=== PATIENT | female | born 1980 | race Caucasian/White ===

== ENCOUNTER 2020-05-20 15:07 | Outpatient (REF) | payer OTHER, SELFPAY | END 2020-05-20 15:08 | disposition home or self-care (01) | LOC: HO.LAB 15:07 | PROVIDERS: Visit Provider Internal Medicine | DX: Z20.828 Contact with and (suspected) exposure to other viral communicable diseases (principal) | CPT/HCPCS: 87635 ==

== ENCOUNTER 2021-03-09 09:59 | Emergency (ER) | payer MEDICAID, SELFPAY ==
[2021-03-09 10:51] VITALS: BP 142/85; PULSE 70; RESP 18; TEMP 36.7; O2SAT 100; BMI 24.2
== END 2021-03-09 13:48 | disposition left against medical advice (07) ==
PROVIDERS: Emergency Provider Emergency Medicine
DX: M54.5 Low back pain (principal)
CPT/HCPCS: 99281; 99282

== ENCOUNTER 2021-03-10 11:10 | Outpatient (REF) | payer MEDICAID, SELFPAY ==
--- NOTE | ~2021-03-10 | XR_ITS ---
EXAMINATION: XR ANKLE, LEFT XR FOOT, LEFT XR LUMBAR SPINE XR THORACIC SPINE CLINICAL INFORMATION: Pain. COMPARISON: Left ankle and foot of 08/18/2019. TECHNIQUE: 5 views of the left foot and ankle. 5 views of the lumbar spine. 3 views of the thoracic spine. FINDINGS: THORACIC SPINE: There is minimal scoliosis convex right which may be positional in nature. Bony texture unremarkable. Pedicles intact. There is minimal spurring inferior thoracic spine. No acute fracture or paraspinal line bulge is identified. LUMBAR SPINE: There are 5 nonrib-bearing lumbar vertebra. No acute fracture, spondylolisthesis, or spondylolysis is identified. There is moderate narrowing of the L5-S1 disc space. No significant sacroiliac joint abnormality is seen. LEFT FOOT AND ANKLE: Views of the left ankle do not demonstrate any evidence of acute fracture or dislocation. Ankle mortise is intact. There is some soft tissue swelling seen about the lateral malleolus. Views of the left foot do not demonstrate any evidence of acute fracture or dislocation. There is degenerative change with sclerosis and spurring seen about the calcaneocuboid joint. There is increased sclerosis seen about sustentaculum roxana and question previous calcaneal injury/fracture with loss of Bohler's angle. Small plantar calcaneal spur is evident. Above findings were present previously. XR/XR foot LT min 3V IMPRESSION: No significant abnormality of the thoracic spine. L5-S1 degenerative disc disease. Soft tissue swelling about the lateral malleolus without significant ankle abnormality appreciated. Suspicion of previous calcaneal fracture with degenerative change about the calcaneocuboid joint and talar calcaneal joints.
--- NOTE | ~2021-03-10 | XR_ITS ---
EXAMINATION: XR ANKLE, LEFT XR FOOT, LEFT XR LUMBAR SPINE XR THORACIC SPINE CLINICAL INFORMATION: Pain. COMPARISON: Left ankle and foot of 08/18/2019. TECHNIQUE: 5 views of the left foot and ankle. 5 views of the lumbar spine. 3 views of the thoracic spine. FINDINGS: THORACIC SPINE: There is minimal scoliosis convex right which may be positional in nature. Bony texture unremarkable. Pedicles intact. There is minimal spurring inferior thoracic spine. No acute fracture or paraspinal line bulge is identified. LUMBAR SPINE: There are 5 nonrib-bearing lumbar vertebra. No acute fracture, spondylolisthesis, or spondylolysis is identified. There is moderate narrowing of the L5-S1 disc space. No significant sacroiliac joint abnormality is seen. LEFT FOOT AND ANKLE: Views of the left ankle do not demonstrate any evidence of acute fracture or dislocation. Ankle mortise is intact. There is some soft tissue swelling seen about the lateral malleolus. Views of the left foot do not demonstrate any evidence of acute fracture or dislocation. There is degenerative change with sclerosis and spurring seen about the calcaneocuboid joint. There is increased sclerosis seen about sustentaculum roxana and question previous calcaneal injury/fracture with loss of Bohler's angle. Small plantar calcaneal spur is evident. Above findings were present previously. XR/XR ankle LT 2V IMPRESSION: No significant abnormality of the thoracic spine. L5-S1 degenerative disc disease. Soft tissue swelling about the lateral malleolus without significant ankle abnormality appreciated. Suspicion of previous calcaneal fracture with degenerative change about the calcaneocuboid joint and talar calcaneal joints.
--- NOTE | ~2021-03-10 | XR_ITS ---
EXAMINATION: XR ANKLE, LEFT XR FOOT, LEFT XR LUMBAR SPINE XR THORACIC SPINE CLINICAL INFORMATION: Pain. COMPARISON: Left ankle and foot of 08/18/2019. TECHNIQUE: 5 views of the left foot and ankle. 5 views of the lumbar spine. 3 views of the thoracic spine. FINDINGS: THORACIC SPINE: There is minimal scoliosis convex right which may be positional in nature. Bony texture unremarkable. Pedicles intact. There is minimal spurring inferior thoracic spine. No acute fracture or paraspinal line bulge is identified. LUMBAR SPINE: There are 5 nonrib-bearing lumbar vertebra. No acute fracture, spondylolisthesis, or spondylolysis is identified. There is moderate narrowing of the L5-S1 disc space. No significant sacroiliac joint abnormality is seen. LEFT FOOT AND ANKLE: Views of the left ankle do not demonstrate any evidence of acute fracture or dislocation. Ankle mortise is intact. There is some soft tissue swelling seen about the lateral malleolus. Views of the left foot do not demonstrate any evidence of acute fracture or dislocation. There is degenerative change with sclerosis and spurring seen about the calcaneocuboid joint. There is increased sclerosis seen about sustentaculum roxana and question previous calcaneal injury/fracture with loss of Bohler's angle. Small plantar calcaneal spur is evident. Above findings were present previously. XR/XR thoracic spine 2V IMPRESSION: No significant abnormality of the thoracic spine. L5-S1 degenerative disc disease. Soft tissue swelling about the lateral malleolus without significant ankle abnormality appreciated. Suspicion of previous calcaneal fracture with degenerative change about the calcaneocuboid joint and talar calcaneal joints.
--- NOTE | ~2021-03-10 | XR_ITS ---
EXAMINATION: XR ANKLE, LEFT XR FOOT, LEFT XR LUMBAR SPINE XR THORACIC SPINE CLINICAL INFORMATION: Pain. COMPARISON: Left ankle and foot of 08/18/2019. TECHNIQUE: 5 views of the left foot and ankle. 5 views of the lumbar spine. 3 views of the thoracic spine. FINDINGS: THORACIC SPINE: There is minimal scoliosis convex right which may be positional in nature. Bony texture unremarkable. Pedicles intact. There is minimal spurring inferior thoracic spine. No acute fracture or paraspinal line bulge is identified. LUMBAR SPINE: There are 5 nonrib-bearing lumbar vertebra. No acute fracture, spondylolisthesis, or spondylolysis is identified. There is moderate narrowing of the L5-S1 disc space. No significant sacroiliac joint abnormality is seen. LEFT FOOT AND ANKLE: Views of the left ankle do not demonstrate any evidence of acute fracture or dislocation. Ankle mortise is intact. There is some soft tissue swelling seen about the lateral malleolus. Views of the left foot do not demonstrate any evidence of acute fracture or dislocation. There is degenerative change with sclerosis and spurring seen about the calcaneocuboid joint. There is increased sclerosis seen about sustentaculum roxana and question previous calcaneal injury/fracture with loss of Bohler's angle. Small plantar calcaneal spur is evident. Above findings were present previously. XR/XR lumbar spine 4V min IMPRESSION: No significant abnormality of the thoracic spine. L5-S1 degenerative disc disease. Soft tissue swelling about the lateral malleolus without significant ankle abnormality appreciated. Suspicion of previous calcaneal fracture with degenerative change about the calcaneocuboid joint and talar calcaneal joints.
== END 2021-03-10 11:11 | disposition home or self-care (01) ==
LOC: HO.XRAY 11:10
PROVIDERS: PCP Registered Nurse; Visit Provider Registered Nurse
DX: G89.29 Other chronic pain (principal); M25.572 Pain in left ankle and joints of left foot; M54.42 Lumbago with sciatica, left side; M54.6 Pain in thoracic spine; M79.672 Pain in left foot
CPT/HCPCS: 72070; 72110; 73600; 73630

== ENCOUNTER 2021-09-30 08:56 | Outpatient (REF) | payer MEDICAID, SELFPAY ==
--- NOTE | ~2021-09-30 | MM_ITS ---
EXAMINATION: MM DIAGNOSTIC DIGITAL BREAST TOMOSYNTHESIS, BILATERAL US DIAGNOSTIC ULTRASOUND BREAST, LEFT CLINICAL INFORMATION: Pain retroareolar left breast. Right sized nodule palpable by patient lower outer retroareolar left breast. Family history breast cancer, cousin. Prior outside mammography 4 years ago [id number], [place], unavailable. The lifetime risk of breast cancer based on the Tyrer-Cuzick Model is 11%. COMPARISON: None. TECHNIQUE: Digital breast tomosynthesis is performed in both the craniocaudal and mediolateral oblique views along with computer-aided detection (CAD). Synthesized 2D images are generated from the tomosynthesis. Ultrasound left breast is targeted to the areas of clinical concern as noted by patient. Patient is able to point areas of concern at time of imaging. In addition, additional ultrasound performed upper outer left breast. Grayscale imaging and color Doppler are performed without and with harmonics. FINDINGS: The breasts are heterogeneously dense, which may obscure small masses (ACR BI-RADS breast composition Category c). There are no significant masses, abnormal calcifications, or other abnormalities. No skin thickening or coarsening of the River's ligaments. The axilla are unremarkable. Ultrasound demonstrates a incidental simple cyst 3:00 position 7 cm from nipple measuring 0.8 x 0.5 cm, unrelated to patient's palpable concern and beyond the area of pain. There is no solid mass or architectural abnormality or focal duct ectasia. No skin thickening or edema tracking in soft tissue planes. Results are discussed with the patient at time of visit, using an coordinator hotels. MM/MM tomosynthesis diagnostic BI IMPRESSION: 1. No mammographic evidence of malignancy or inflammatory changes. 2. Incidental simple cyst 3:00 position mid depth 0.8 cm. ASSESSMENT: BI-RADS 2: Benign RECOMMENDATION: 1. Patient's breast pain should be managed based on the clinical impression. If there is clinically palpable concern, further evaluation may be considered with surgical consult. Decision to proceed with biopsy should be based on clinical grounds and degree of clinical concern. 2. Otherwise, routine annual screening mammography. This patient's information was entered into a reminder system with a target due date for their next mammogram.
== END 2021-09-30 08:57 | disposition home or self-care (01) ==
LOC: HO.MAMMO 08:56
PROVIDERS: PCP Nurse Practitioner Family; Visit Provider Nurse Practitioner Family
DX: N63.41 Unspecified lump in right breast, subareolar (principal); N64.4 Mastodynia
CPT/HCPCS: 76642; 77062; 77066

== ENCOUNTER 2022-12-03 11:00 | Emergency (ER) | payer MEDICAID, SELFPAY ==
--- NOTE | ~2022-12-03 | US_ITS ---
EXAMINATION: US SOFT TISSUE NECK CLINICAL INFORMATION: Mass versus lymph node left lateral neck COMPARISON: None available. TECHNIQUE: Ultrasound of the neck soft tissues is performed with high- frequency landa-scale imaging and color Doppler. FINDINGS: There is a 2.2 x 0.7 x 2.9 cm oval-shaped mass corresponding severe palpable abnormality. The mass has a slightly echogenic center. The appearance is characteristic for a benign lymph node. Multiple similar-appearing masses noted throughout the left neck also with appearance characteristic for lymph nodes. No additional masses.. US/US soft tiss head and/or neck IMPRESSION: Benign-appearing lymph nodes in the left neck one of which appears to be corresponding to the reported area of palpable abnormality
[2022-12-03 11:10] VITALS: BP 119/85; PULSE 81; RESP 18; TEMP 36.2; O2SAT 100; BMI 32.3
--- NOTE | 2022-12-03 11:14 | ED_ITS ---
HPI - General Adult General Chief complaint: General Medical <John Boyd - Last Filed: 12/03/22 11:15> Stated complaint: Lump behind L ear, painful <John Boyd - Last Filed: 12/03/22 11:15> Time Seen by Provider: 12/03/22 12:19 <John Boyd - Last Filed: 12/03/22 11:15> Source: patient <Erich Arroyo MD - Last Filed: 12/03/22 12:52> Mode of arrival: ambulatory <Erich Arroyo MD - Last Filed: 12/03/22 12:52> Limitations: language barrier <Erich Arroyo MD - Last Filed: 12/03/22 12:52> History of Present Illness HPI narrative: History obtained through an director medical writing. [place] with a few months of cervical lump, now feels that it is getting bigger. <Erich Arroyo MD - Last Filed: 12/03/22 12:52> Onset (ago): day(s) <Erich Arroyo MD - Last Filed: 12/03/22 12:52> Location: neck <Erich Arroyo MD - Last Filed: 12/03/22 12:52> Severity: mild <Erich Arroyo MD - Last Filed: 12/03/22 12:52> Pain Consistency: intermittent <Erich Arroyo MD - Last Filed: 12/03/22 12:52> Associated symptoms: denies other symptoms <Erich Arroyo MD - Last Filed: 12/03/22 12:52> Related Data Allergies/adverse reactions: Allergies Allergy/AdvReac Type Severity Reaction Status Date / Time No Known Allergies Allergy Verified 12/03/22 11:10 [No Known Allergies*] <John Boyd - Last Filed: 12/03/22 11:15> Review of Systems Review of Systems: Yes all other systems are reviewed and are negative <Erich Arroyo MD - Last Filed: 12/03/22 12:52> PMFSH Social History Social History: Social History Alcohol intake: never Smoked in Last 30 Days: Yes Use of substances other than those prescribed or required for medical reasons: No Advance Directives: No <John Boyd - Last Filed: 12/03/22 11:15> Physical Exam ED Vital Signs: Vital Signs - 24 hr 12/03/22 11:10 12/03/22 11:46 Temperature 97.2 F Pulse Rate 81 Respiratory Rate 18 16 Blood Pressure 119/85 Pulse Oximetry 100 Oxygen Delivery Method Room Air BMI result Body Mass Index 32.3 <John Boyd - Last Filed: 12/03/22 11:15> Vital Signs - 24 hr 12/03/22 11:10 12/03/22 11:46 Temperature 97.2 F Pulse Rate 81 Respiratory Rate 18 16 Blood Pressure 119/85 Pulse Oximetry 100 Oxygen Delivery Method Room Air BMI result Body Mass Index 32.3 <Erich Arroyo MD - Last Filed: 12/03/22 12:52> Const General: healthy appearing <Erich Arroyo MD - Last Filed: 12/03/22 12:52> Nutritional Appearance: average body habitus <Erich Arroyo MD - Last Filed: 12/03/22 12:52> Orientation/consciousness: oriented to person and patient oriented x3 <Erich Arroyo MD - Last Filed: 12/03/22 12:52> Limitations: no limitations <Erich Arroyo MD - Last Filed: 12/03/22 12:52> HENMT Head: Yes normal to inspection <Erich Arroyo MD - Last Filed: 12/03/22 12:52> Ears: external ears normal <Erich Arroyo MD - Last Filed: 12/03/22 12:52> General nose exam: Normal external nose present <Erich Arroyo MD - Last Filed: 12/03/22 12:52> Mouth: Normal oral and palatal mucosa present and oropharynx normal <Erihc Arroyo MD - Last Filed: 12/03/22 12:52> Throat: Yes posterior oropharynx normal <Erich Arroyo MD - Last Filed: 12/03/22 12:52> Eyes General: appearance normal, both eyes and all related structures <Erich Arroyo MD - Last Filed: 12/03/22 12:52> Neck Other: 3cm mobile left posterior chain lymph node, no other nodes in neck <Erich Arroyo MD - Last Filed: 12/03/22 12:52> Chest Chest palpation & inspection: normal inspection of the chest <Erich Arroyo MD - Last Filed: 12/03/22 12:52> Resp Auscultation: clear to auscultation bilaterally <Erich Arroyo MD - Last Filed: 12/03/22 12:52> Cardio Jugular venous distension: no JVD <Erich Arroyo MD - Last Filed: 12/03/22 12:52> Rate: regular rate <Erich Arroyo MD - Last Filed: 12/03/22 12:52> Rhythm: regular rhythm <Erich Arroyo MD - Last Filed: 12/03/22 12:52> Heart sounds: S1 normal heart sound present and S2 normal heart sound present <Erich Arroyo MD - Last Filed: 12/03/22 12:52> GI Inspection: Yes normal to inspection <Erich Arroyo MD - Last Filed: 12/03/22 12:52> Palpation (GI): Soft to palpation, nontender and No hepatosplenomegaly present <Erich Arroyo MD - Last Filed: 12/03/22 12:52> Auscultation: normal bowel sounds <Erich Arroyo MD - Last Filed: 12/03/22 12:52> General: Yes no CVA tenderness <Erich Arroyo MD - Last Filed: 12/03/22 12:52> Back/Spine/Pelvis Back: no CVA tenderness <Erich Arroyo MD - Last Filed: 12/03/22 12:52> Skin General skin exam: no rashes or lesions noted <Erich Arroyo MD - Last Filed: 12/03/22 12:52> Neuro General: oriented to person and patient oriented x3 <Erich Arroyo MD - Last Filed: 12/03/22 12:52> Cranial nerves: Yes CN's II-XII intact bilaterally <Erich Arroyo MD - Last Filed: 12/03/22 12:52> Motor exam (neuro): 5/5 motor strength present throughout <Erich Arroyo MD - Last Filed: 12/03/22 12:52> Extrem General: Yes normal to inspection <Erich Arroyo MD - Last Filed: 12/03/22 12:52> Psych Appearance: grossly normal <Erich Arroyo MD - Last Filed: 12/03/22 12:52> Course Course Course Narrative: 42-year-old female presents for evaluation of a growing lump to the left lateral neck. She states this started approximately 1 month ago has been getting much larger. Likely lymphadenopathy. Ultrasound ordered to rule out mass <John Boyd - Last Filed: 12/03/22 11:15> Reevaluation(s) Reevaluation #1: no other lymph nodes appreciated in neck or axilla, no hempatosplenomegaly, no concern for systemic disease <Erich Arroyo MD - Last Filed: 12/03/22 12:52> Time: 12:49 <Erich Arroyo MD - Last Filed: 12/03/22 12:52> Medical Decision Making Differential Diagnosis Differential Diagnoses: The differential diagnosis associated with the presentation includes (lymphadenopathy, pharyngitis, abscess, cyst, otitis media, mastoiditis) <Erich Arroyo MD - Last Filed: 12/03/22 12:52> Radiology Impression Discussion of test interpretation with radiology: I have reviewed the radiologist's reading. (of cervical ultrasound) <Erich Arroyo MD - Last Filed: 12/03/22 12:52> Tests considered The following testing was considered but not selected: I considered obtaining a CBC, however no physical presence of diffuse lymphadenopaty so did no do blood work <Erich Arroyo MD - Last Filed: 12/03/22 12:52> Discharge Plan Discharge Clinical Impression: Adenopathy, cervical <John Boyd - Last Filed: 12/03/22 11:15> Patient Disposition: Home, Self-Care <John Boyd - Last Filed: 12/03/22 11:15> Instructions: Lymphadenopathy (ED) <John Boyd - Last Filed: 12/03/22 11:15> Referrals: [facility] [Primary Care Provider] - 1 week <John Boyd - Last Filed: 12/03/22 11:15>
[2022-12-03 11:46] VITALS: RESP 16
--- NOTE | 2022-12-03 11:55 | PC.NURSE ---
Pt on stretcher, airway open and patent, no obvious signs of distress, no difficulty breathing. A&ox4, skin normal for ethnicity, warm, and dry. Lung sounds clr left. Slight rhonchi noted in lower right side, upper left clr. Heart sounds normal. Bowel sounds present all fletcher, abdomen soft, non-tender upon palpation. No edema noted. Pt has marble size lump in left side of neck, pt reports that she noticed it about a month ago and reports that it has gotten bigger since. Pt reports that she started to have pain in her neck since yesterday. Pt reports that she has not taken anything for the pain due to hx of hep C and avoiding tylenol/motrin. Pt rates pain in neck 02/20 and reports that the pain radiates up her neck to back. Pupils PERRLA.
== END 2022-12-03 13:10 | disposition home or self-care (01) ==
PROVIDERS: Emergency Provider Emergency Medicine
DX: R59.0 Localized enlarged lymph nodes (principal)
CPT/HCPCS: 76536; 99284

== ENCOUNTER 2023-08-17 17:44 | Outpatient (REF) | payer MEDICAID, SELFPAY | END 2023-08-17 17:45 | disposition home or self-care (01) | LOC: HO.HHCLNP 17:44 | PROVIDERS: Visit Provider Emergency Medicine | DX: R10.2 Pelvic and perineal pain (principal); R39.9 Unspecified symptoms and signs involving the genitourinary system | CPT/HCPCS: 87086 ==

== ENCOUNTER 2023-08-18 07:14 | Emergency (ER) | payer MEDICAID, SELFPAY ==
[2023-08-18 07:28] VITALS: BP 125/53; PULSE 92; RESP 16; TEMP 36.1; O2SAT 100; BMI 32.4
--- NOTE | 2023-08-18 10:07 | ED.FEMALEGU ---
HPI - Female Genitourinary General Chief complaint: Urogenital-Female Stated complaint: has abd pain, blood in urine ? Time Seen by Provider: 08/18/23 08:38 Source: patient and medical device Mode of arrival: ambulatory History of Present Illness [facility] Narrative: 43-year-old who presents for complaints of over 1 week of lower abdominal/pelvic cramping and reports that she got her period twice within 1 week while she was in [place]. She denies any vaginal discharge, fevers, chills, nausea, vomiting, dysuria. Related Data Allergies Allergy/AdvReac Type Severity Reaction Status Date / Time No Known Allergies Allergy Verified 12/03/22 11:10 [No Known Allergies*] Review of Systems Review of Systems: Pertinent positives and negatives as stated in [facility] Past Medical History Source: nursing notes reviewed Onset Date is defined in the Problem List Problems that require an onset date and time if occurred within 24 hrs of arrival to the ED Aortic Dissection and Rupture; Neurologic impairment; Cardiopulmonary Arrest; Endotracheal Intubation; Insertion or Replacement of Mechanical Circulatory Assist Device Social History Social History Alcohol intake: never Advance Directives: No Advance Directives Information Provided: Yes Physical Exam Vital Signs: Vital Signs: Last Vital Signs Temp 97 F 08/18/23 07:28 Pulse 92 08/18/23 07:28 Resp 16 08/18/23 07:28 BP 125/53 L 08/18/23 07:28 Pulse Ox 100 08/18/23 07:28 O2 Del Method Room Air 08/18/23 07:28 BMI result Body Mass Index 32.4 VITAL SIGNS: Reviewed. GENERAL: Well developed, well nourished, in no acute distress. HEAD: Normocephalic/atraumatic EYES: PERRLA, EOMI EARS: Ext canals without abnormality NOSE: Nares patent bilateral OROPHARYNX: no oral lesions noted, posterior pharynx clear NECK: Supple, no adenopathy LUNGS: Normal breath sounds. No adventitious sounds or accessory muscle use. SpO2<100> CARDIOVASCULAR: Regular rate and rhythm without noted murmurs ABDOMEN: Soft, non-tender, non-distended with bowel sounds. MUSCULOSKELETAL: No tenderness, deformities, or effusions noted on gross inspection. EXTREMITIES: No cyanosis, clubbing or edema. SKIN: Inspection of the skin reveals no rashes NEUROLOGIC: Alert and oriented x 4. Strength and sensation to light touch were grossly intact x 4. Medications Administered Discontinued Medications Generic Name Dose Route Start Last Admin Trade Name Cathy PRN Reason Stop Dose Admin Acetaminophen 975 mg 08/18/23 09:26 08/18/23 10:02 Acetaminophen 325 Mg Tablet PO 08/18/23 09:27 975 mg ONCE ONE Administration Ibuprofen 800 mg 08/18/23 09:26 08/18/23 10:02 Ibuprofen 800 Mg Tablet PO 08/18/23 09:27 800 mg ONCE ONE Administration Medical Decision Making Medical Decision Making [facility] Narrative: 43-year-old female with history and clinical presentation, DDX: UTI, ectopic, I have no clinical suspicion for torsion or appendicitis. No history or concerns by the patient for sexually transmitted infection. Patient is primarily concerned about why she had her period twice. I reviewed all over investigations and she has no hematuria or urinary tract infection, urine test is negative. I did discuss with the patient that she may be experiencing changes in her menstruation if her body is entering into perimenopausal process. She was encouraged to follow-up with your primary care doctor and provided with a referral to follow-up with [facility] gynecology. She received combination analgesics and on re-evaluation reports improvement of her symptoms. Differential Diagnosis Differential Diagnoses: The differential diagnosis associated with the presentation includes Please see the discussion above Admission/Observation Consideration of admission/observation: Escalation of care including admission/observation considered Please see the discussion above Lab Data [facility] Lab Attestation statement: I reviewed the patient's lab results. Please see the discussion above Labs: Lab Results 08/18/23 Range/Units 07:36 Urine Color Dark Yellow Urine Appearance Cloudy Urine pH 5.5 (5.0-9.0) Ur Specific [place] 1.025 (1.005-1.025) Urine Protein Trace (Neg-Trace) mg/dL Urine Glucose (UA) Negative (Negative) mg/dL Urine Ketones Trace (Negative) mg/dL Urine Blood Negative (Negative) Urine Nitrite Negative (Negative) Ur Leukocyte Esterase Negative (Negative) Urine Test NEGATIVE (NEGATIVE) Discharge Plan Discharge Clinical Impression: Pelvic pain Patient Disposition: Home, Self-Care Instructions: Pelvic Pain in Women (ED) Additional Instructions: 1. Tylenol 1000 mg, por v?a oral, cada 6 horas seg?n sea necesario para controlar el dolor. No exceda los 4000 mg en 24 horas. 2. Ibuprofeno 400 mg, por v?a oral con leche o comida, cada 6 horas seg?n sea necesario para controlar el dolor. 3. Las referencias que se le proporcionan a continuaci?n y le recomiendo que realice un seguimiento con [facility]?dico de atenci?n primaria para analizar jennyfer referencia adicional para serena a ginec?logo. Regrese a la vinny de emergencias si los s?ntomas empeoran. 1. Tylenol 1000 mg, orally, every 6 hours as needed for pain control. Do not exceed 4000 mg within 24 hours. 2. Ibuprofen 400 mg, orally with milk or food, every 6 hours as needed for pain control. 3. The referrals provided to you below and I encourage follow-up with both your primary care doctor to discuss a further referral to see gynecology. Return to the ER for any worsening symptoms. Referrals: Tommy Dugan MD [Physician] - Interventions: ED Discharge Assessment Last Done: 08/18/23 10:46 Discharge Date/Time: 08/18/23 10:46 Print Language: Yakut
== END 2023-08-18 10:46 | disposition home or self-care (01) ==
PROVIDERS: Emergency Provider Student in an Organized Health Care Education/Training Program
DX: R10.9 Unspecified abdominal pain (principal); R10.2 Pelvic and perineal pain; Z79.899 Other long term (current) drug therapy
CPT/HCPCS: 81003; 81025; 99283

== ENCOUNTER 2023-08-29 04:11 | Emergency (ER) | payer MEDICAID, SELFPAY ==
--- NOTE | ~2023-08-29 | CT_ITS ---
EXAMINATION: CT ABDOMEN AND PELVIS WITHOUT CONTRAST CLINICAL INFORMATION: Left flank pain. COMPARISON: None available. TECHNIQUE: Multidetector volumetric imaging was performed from the superior aspect of the liver through the pubic symphysis. Sagittal and coronal reformatted images were obtained on the technologist's workstation. This CT examination was performed using dose optimization techniques as appropriate, variously including the following: *Automated exposure control *Adjustment of mA and/or kV according to patient size (this includes techniques or standardized protocols for targeted exams where dose is matched to indication/reason for exam; i.e. extremities or head) *Use of iterative reconstruction technique DLP: 665 mGy-cm FINDINGS: LUNG BASES: The visualized lung bases are unremarkable. LIVER, GALLBLADDER, AND BILIARY TREE: The liver is normal in size, shape, and attenuation. No focal hepatic lesion or biliary ductal dilatation is present. The gallbladder is unremarkable with no evidence of radiopaque gallstones, gallbladder wall thickening, or obvious pericholecystic inflammatory changes. PANCREAS: Unremarkable. SPLEEN: Unremarkable. ADRENAL GLANDS: Unremarkable. KIDNEYS AND URETERS: The kidneys are normal in size, shape, and attenuation. There is mild left hydronephrosis and hydroureter extending into the pelvis to the level of a 3.5 mm distal left ureteric calculus. BLADDER: Unremarkable. GASTROINTESTINAL TRACT: The small and large bowel are unremarkable. The appendix is unremarkable. ABDOMINAL WALL: There is a small umbilical hernia containing fat. LYMPH NODES: Normal. VASCULAR: Unremarkable. PELVIC VISCERA: Unremarkable. OSSEOUS STRUCTURES: There is moderate to severe L5-S1 disc degenerative change CT/CT abdomen pelvis wo IV con IMPRESSION: Mild left hydronephrosis and hydroureter extending into the pelvis to the level of a 3.5 mm distal left ureteric calculus. Fleischner guidelines were followed.
[2023-08-29 04:18] VITALS: BP 124/80; BP 132/56; PULSE 61; PULSE 72; RESP 22; TEMP 36.4; O2SAT 100; O2SAT 98; BMI 27.5
--- NOTE | 2023-08-29 04:43 | ED_ITS ---
HPI - Abdominal Pain General Chief Complaint: Abdominal Pain Stated Complaint: L LOW BACK PAIN,SOB PER EMS Time Seen by Provider: 08/29/23 04:38 Source: patient Mode of arrival: ambulatory Limitations: no limitations History of Present Illness HPI narrative: Patient comes to the emergency room complaining of left-sided flank pain that started suddenly about 3.5 hours ago. Patient states that she returned to work, ate pancakes, then suddenly had a sharp sensation in the left flank radiating towards the suprapubic area and left groin. Patient states the pain is intermittent. Patient has never passed kidney stones. Patient complaining of nausea, no vomiting or diarrhea. Chest pain or abdominal pain other than the suprapubic discomfort. Patient states that she has been seen at [facility] before, she has been told that she has blood in the urine but a recent has not been found. Patient complaining of intermittent dysuria. No fever or chills. Related Data Previous Rx's Medication Instructions Recorded ketorolac 10 mg tablet 10 mg PO TID PRN pain #14 tabs 08/29/23 ondansetron HCl 4 mg tablet 4 mg PO Q6H PRN nausea and 08/29/23 vomiting #14 tabs tamsulosin 0.4 mg capsule 0.4 mg PO DAILY #20 caps 08/29/23 Allergies Allergy/AdvReac Type Severity Reaction Status Date / Time No Known Allergies Allergy Verified 12/03/22 11:10 [No Known Allergies*] Review of Systems Review of Systems Constitutional : No Weight loss, No Fever, No Chills, No Night Sweats, No Fatigue, No Malaise ENT/Mouth : No Hearing loss, No Ear Pain, No Nasal Congestion, No Sinus Pain, No Hoarseness, No sore throat, No Rhinorrhea, No Swallowing Difficulty Eyes: No Eye Pain, No Swelling, No Redness, No Foreign Body, No Discharge, No Vision Changes Cardiovascular : No Chest Pain, No SOB, No Dyspnea on Exertion, No Orthopnea, No Edema, No Palpitations Respiratory : No Cough, No Sputum, No Wheezing, No Smoke Exposure, No Dyspnea Gastrointestinal : No Nausea, No Vomiting, No Diarrhea, No Constipation, No abdominal Pain, No Hematochezia, No Melena Genitourinary : Complaining of intermittent Dysuria, No Urinary Frequency, complaining of intermittent Hematuria, No Urinary Incontinence, No Urgency, complaining of constant left-sided Flank Pain, No Urinary Flow Changes, No Hesitancy Musculoskeletal : No joint pain, No Myalgias, No Joint Swelling Skin : No Skin Lesions, No rash Neuro : No Weakness, No Numbness, No Paresthesias, No Loss of Consciousness, No Dizziness, No Headache Psych : No Anxiety/Panic, No Depression, No SI/HI/AH/VH, No Social Issues, Heme/Lymph: No Bruising, No Bleeding,No Lymphadenopathy Endocrine : No Polyuria, No Polydipsia, No Temperature Intolerance [facility] Social History Social History Alcohol intake: never Smoked in Last 30 Days: Yes Use of substances other than those prescribed or required for medical reasons: No Advance Directives: No Advance Directives Information Provided: No Patient : No Physical Exam ED Vital Signs: Vital Signs - 24 hr 08/29/23 04:18 08/29/23 06:18 Temperature 97.5 F Pulse Rate 61 54 Respiratory Rate 22 H 16 Blood Pressure 132/56 L 106/63 Pulse Oximetry 100 97 Oxygen Delivery Method Room Air Room Air BMI result Body Mass Index 27.5 Const Other: Appearance: Alert. Oriented X3. Seems uncomfortable Eyes: Pupils equal, round and reactive to light. ENT: Pharynx normal. Neck: Normal inspection. Neck supple. No lymph nodes noted. No crepitus CVS: Normal heart rate and rhythm. Pulses normal. Normal S1 and S2 Respiratory: No respiratory distress. Breath sounds normal. No Wheezing. No rales Abdomen: Soft and nontender. No rigidity. No distention. Positive CVA tenderness on the left Skin: Skin warm and dry. Normal skin color. Normal skin turgor. Extremities: No lower extremity edema. No Lacerations. No Rash Neuro: Oriented X 3. No motor deficit. No sensory deficit. Moving all extremities. No slurred speech. CN 2 through 12 grossly intact Psych: calm, cooperative, normal affect Course Course Course Narrative: -labs and imaging pending -CT scan pending -patient receiving IV fluids, Zofran and ketorolac IV Medical Decision Making Medical Decision Making MDM Narrative: -my interpretation of labs: Hematology: White blood cell count normal, hemoglobin 11.7, chemistry unremarkable, urine negative for UTI or blood -my interpretation of CT scan: Small stone in the left ureter -I discussed the CT findings, radiology report with the patient, patient is passing a kidney stone. Patient feels comfortable at this time, no significant pain, patient will be discharged home Differential Diagnosis Differential Diagnoses: The differential diagnosis associated with the presentation includes (Ureterolithiasis, renal colic, UTI, pyelonephritis) Admission/Observation Consideration of admission/observation: Escalation of care including admission/observation considered (Given patient's initial presentation, patient was considered) Lab Data MDM Lab Attestation statement: I reviewed the patient's lab results. 08/29/23 04:49 08/29/23 04:49 Labs: Lab Results 08/29/23 08/29/23 Range/Units 04:49 05:00 WBC 8.7 (4.8-10.8) X10*3/uL RBC 4.38 (4.20-5.50) X10*6/uL Hgb 11.7 L (12.0-16.0) g/dl Hct 36.2 L (37.0-47.0) % MCV 82.6 (80.0-98.0) fL MCH 26.7 L (27.0-33.0) pg MCHC 32.3 (31.0-35.0) g/dl RDW 15.2 (11.0-16.0) % Plt Count 265 (160-400) X10*3/uL MPV 9.8 (9.4-12.3) fL Immature Gran % (Auto) 0.2 (0.0-0.4) % Neut % (Auto) 69.0 (45-73) % Lymph % (Auto) 21.5 (20-40) % [place] % (Auto) 7.7 (2-11) % Eos % (Auto) 1.3 (0-4) % Baso % (Auto) 0.3 (0-2) % Lymph # (Auto) 1.9 (1.2-4.9) X10*3/uL [place] # (Auto) 0.7 (0.1-1.2) X10*3/uL Eos # (Auto) 0.1 (0.0-0.4) X10*3/uL Baso # (Auto) 0.0 (0.0-0.2) X10*3/uL Abs Immat Gran (auto) 0.02 (0.00-0.03) X10*3/uL Absolute Neuts (auto) 6.0 (2.0-8.3) x10*3/uL Absolute Nucleated RBC 0.000 (0.0-0.012) X10*3/uL Nucleated RBC % (auto) 0.0 (0.0-0.2) /100WBC Sodium 139 (135-145) mmol/L Potassium 4.0 (3.3-5.1) mmol/L Chloride 103 (96-108) mmol/L Carbon Dioxide 25 (22-29) mmol/L Anion Gap 15 (12-20) BUN 15 (9-16) mg/dL Creatinine 0.89 (0.5-1.4) mg/dL Estim Creat Clear Calc 77.9 Estimated GFR > 60 Random Glucose 122 H (60-115) mg/dL Calcium 9.5 (8.4-10.2) mg/dL Total Bilirubin 0.2 (0.0-1.0) mg/dL AST 25 (5-31) U/L ALT 17 (0-31) U/L Alkaline Phosphatase 100 (39-117) U/L Total Protein 8.2 H (6.5-8.0) g/dL Albumin 4.3 (3.5-5.0) g/dL Lipase 27 (8-78) U/L Beta HCG, Quant < 2 mIU/mL Urine Color Dark Yellow Urine Appearance Clear Urine pH 5.5 (5.0-9.0) Ur Specific [place] >= 1.030 H (1.005-1.025) Urine Protein Trace (Neg-Trace) mg/dL Urine Glucose (UA) Negative (Negative) mg/dL Urine Ketones Trace (Negative) mg/dL Urine Blood Negative (Negative) Urine Nitrite Negative (Negative) Ur Leukocyte Esterase Negative (Negative) Independent Interpretation I performed an independent interpretation of an: CT Scan Radiology Impression Discussion of test interpretation with radiology: I have reviewed the radiologist's reading. Radiologist Impression: FINDINGS: LUNG BASES: The visualized lung bases are unremarkable. LIVER, GALLBLADDER, AND BILIARY TREE: The liver is normal in size, shape, and attenuation. No focal hepatic lesion or biliary ductal dilatation is present. The gallbladder is unremarkable with no evidence of radiopaque gallstones, gallbladder wall thickening, or obvious pericholecystic inflammatory changes. PANCREAS: Unremarkable. SPLEEN: Unremarkable. ADRENAL GLANDS: Unremarkable. KIDNEYS AND URETERS: The kidneys are normal in size, shape, and attenuation. There is mild left hydronephrosis and hydroureter extending into the pelvis to the level of a 3.5 mm distal left ureteric calculus. BLADDER: Unremarkable. GASTROINTESTINAL TRACT: The small and large bowel are unremarkable. The appendix is unremarkable. ABDOMINAL WALL: There is a small umbilical hernia containing fat. LYMPH NODES: Normal. VASCULAR: Unremarkable. PELVIC VISCERA: Unremarkable. OSSEOUS STRUCTURES: There is moderate to severe L5-S1 disc degenerative change CT/CT abdomen pelvis wo IV con IMPRESSION: Mild left hydronephrosis and hydroureter extending into the pelvis to the level of a 3.5 mm distal left ureteric calculus. Fleischner guidelines were followed. Medications Administered Discontinued Medications Generic Name Dose Route Start Last Admin Trade Name Freq PRN Reason Stop Dose Admin Ketorolac Tromethamine 30 mg 08/29/23 04:42 08/29/23 04:56 Ketorolac Tromethamine 30 Mg/Ml Vial IVPUSH 08/29/23 04:43 30 mg ONCE ONE Administration Ondansetron HCl 4 mg 08/29/23 04:42 08/29/23 04:56 Ondansetron Hcl 4 Mg/2 Ml Vial IVPUSH 08/29/23 04:43 4 mg ONCE ONE Administration Discharge Plan Discharge Clinical Impression: Ureterolithiasis Patient Disposition: Home, Self-Care Instructions: Kidney Stones (ED) Additional Instructions: Please follow-up with your primary care physician tomorrow. If you have any worsening or new symptoms, please return to the emergency room or call 911 Prescriptions: New tamsulosin 0.4 mg capsule 0.4 mg PO DAILY Qty: 20 0RF ketorolac 10 mg tablet 10 mg PO TID PRN (Reason: pain) Qty: 14 0RF ondansetron HCl 4 mg tablet 4 mg PO Q6H PRN (Reason: nausea and vomiting) Qty: 14 0RF Referrals: Ag Ang MD [Physician] - 09/05/23 Stand Alone Forms: Work/School Release
[2023-08-29 04:53] LABS: MANUAL DIFF FLAG NO
[2023-08-29 04:54] LABS: Basophils Percent Auto 0.3 % (0-2); Eosinophils Absolute Auto 0.1 X10*3/uL (0.0-0.4); Eosinophils Percent Auto 1.3 % (0-4); Hematocrit 36.2 % (37.0-47.0); Hemoglobin 11.7 g/dl (12.0-16.0); Imm Gran Abs Auto 0.02 X10*3/uL (0.00-0.03); Imm Gran Pct Auto 0.2 % (0.0-0.4); Lymphocytes Absolute Auto 1.9 X10*3/uL (1.2-4.9); Lymphocytes Percent Auto 21.5 % (20-40); Mean Corpuscular HGB Conc 32.3 g/dl (31.0-35.0); Mean Corpuscular Hemoglobin 26.7 pg (27.0-33.0); Mean Corpuscular Volume 82.6 fL (80.0-98.0); Mean Platelet Volume 9.8 fL (9.4-12.3); Monocytes Absolute Auto 0.7 X10*3/uL (0.1-1.2); Monocytes Percent Auto 7.7 % (2-11); Platelet Count 265 X10*3/uL (160-400); Red Blood Count 4.38 X10*6/uL (4.20-5.50); Red Cell Distribution Width 15.2 % (11.0-16.0); White Blood Count 8.7 X10*3/uL (4.8-10.8)
[2023-08-29] MEDS: Ketorolac Tromethamine 30 MG/ML VIAL IVPUSH (04:56)
[2023-08-29] MEDS: ondansetron HCL 4 MG/2 ML VIAL IVPUSH (04:56)
[2023-08-29 05:07] LABS: Appearance Urine Clear; Color Urine Dark Yellow; Glucose Urine UA Negative (Negative); Leukocyte Esterase Urine Negative (Negative); Nitrite Urine Negative (Negative); PH 5.5 (5.0-9.0); Specific Gravity - Urine >= 1.030 (1.005-1.025); Urine Blood Negative (Negative); Urine Ketones Trace mg/dL (Negative); Urine Protein Trace mg/dL (Neg-Trace)
[2023-08-29 05:15] LABS: Alanine Aminotransferase 17 U/L (0-31); Albumin Level 4.3 g/dL (3.5-5.0); Alkaline Phosphatase 100 U/L (39-117); Anion Gap 15 (12-20); Aspartate Amino Transferase 25 U/L (5-31); Bilirubin Total 0.2 mg/dL (0.0-1.0); Blood Urea Nitrogen 15 mg/dL (9-16); Calcium 9.5 mg/dL (8.4-10.2); Carbon Dioxide 25 mmol/L (22-29); Chloride 103 mmol/L (96-108); Creatinine Clr Calc Pharmacy 77.9; Estimated Glomerular Filt Rate > 60; Glucose Random 122 mg/dL (60-115); HCG Quantitative < 2 mIU/mL; Lipase 27 U/L (8-78); Sodium 139 mmol/L (135-145); Total Protein 8.2 g/dL (6.5-8.0)
[2023-08-29 06:18] VITALS: BP 106/63; PULSE 54; RESP 16; O2SAT 97
== END 2023-08-29 06:46 | disposition home or self-care (01) ==
PROVIDERS: Emergency Provider Emergency Medicine
DX: N13.2 Hydronephrosis with renal and ureteral calculous obstruction (principal)
CPT/HCPCS: 36415; 74176; 80053; 81003; 83690; 84702; 85025; 96374; 96375; 99284; 99285; J1885; J2405

== ENCOUNTER 2023-09-20 12:43 | Outpatient (REF) | payer MEDICAID, SELFPAY ==
--- NOTE | ~2023-09-20 | MM_ITS ---
EXAMINATION: MM SCREENING DIGITAL BREAST TOMOSYNTHESIS, BILATERAL CLINICAL INFORMATION: Screening. Asymptomatic. COMPARISON: Mammography: This study is compared with prior exams dating back to 2021. TECHNIQUE: Digital breast tomosynthesis is performed in both the craniocaudal and mediolateral oblique views along with computer-aided detection (CAD). Synthesized 2D images are generated from the tomosynthesis. FINDINGS: The breasts are heterogeneously dense, which may obscure small masses (ACR BI-RADS breast composition Category c). There are no significant masses, abnormal calcifications, or other abnormalities. MM/MM tomosynthesis screening BI IMPRESSION: No mammographic evidence of malignancy. ASSESSMENT: BI-RADS BI-RADS 1 - Negative RECOMMENDATION: Routine annual mammography screening. 1 year F/U This examination should not preclude the clinical evaluation of a suspicious palpable abnormality. This patient's information was entered into a reminder system with a target due date for their next mammogram.
== END 2023-09-20 12:44 | disposition home or self-care (01) ==
LOC: HO.MAMMO 12:43
DX: Z12.31 Encounter for screening mammogram for malignant neoplasm of breast (principal)
CPT/HCPCS: 77063; 77067

== ENCOUNTER → 2023-09-20 13:00 | Outpatient (BNV) | payer MEDICAID, SELFPAY | PROVIDERS: Visit Provider Radiology Diagnostic Radiology | DX: Z12.31 Encounter for screening mammogram for malignant neoplasm of breast (principal) | CPT/HCPCS: 77063; 77067 ==

== ENCOUNTER 2023-10-31 15:39 | Outpatient (REF) | payer MEDICAID, SELFPAY ==
[2023-11-01 07:45] LABS: HBc Num1 0.09 S/CO (0.00-0.79); HIV AB/AG Nonreactive (Nonreactive); HIV Num 1 0.05 S/CO (0.00-0.99); Hepatitis B Core Antibody Nonreactive (Nonreactive); ~Hepatitis C Antibody Reactive (Nonreactive)
[2023-11-04 07:28] LABS: HCV Log PCR <1.18 NOT DETECTED Log IU/mL (NOT DETECTED); HepC Viral Load <15 NOT DETECTED IU/mL (NOT DETECTED)
[2023-11-08 01:03] LABS: HPV mRNA E6/E7 rflx Not Detected (Not Detected)
[2023-11-08 13:53] LABS: C. trachomatis RNA TMA NOT DETECTED (NOT DETECTED); N. gonorrhoeae RNA TMA NOT DETECTED (NOT DETECTED); Trichomonas (NAAT) NOT DETECTED (NOT DETECTED)
== END 2023-10-31 15:40 | disposition home or self-care (01) ==
LOC: HO.HHCL 15:39
PROVIDERS: Visit Provider Nurse Practitioner Family
DX: Z00.00 Encounter for general adult medical examination without abnormal findings (principal); Z12.4 Encounter for screening for malignant neoplasm of cervix; Z11.51 Encounter for screening for human papillomavirus (HPV); Z11.4 Encounter for screening for human immunodeficiency virus [HIV]; Z86.19 Personal history of other infectious and parasitic diseases
CPT/HCPCS: 36415; 86704; 86803; 87389; 87491; 87522; 87591; 87624; 87661; 88142

== ENCOUNTER 2024-02-23 08:56 | Outpatient (REF) | payer MEDICAID, SELFPAY ==
[2024-02-23 11:15] LABS: MANUAL DIFF FLAG NO
[2024-02-23 11:22] LABS: Basophils Percent Auto 0.4 % (0-2); Eosinophils Absolute Auto 0.2 X10*3/uL (0.0-0.4); Eosinophils Percent Auto 2.1 % (0-4); Hematocrit 34.2 % (37.0-47.0); Hemoglobin 10.9 g/dl (12.0-16.0); Imm Gran Abs Auto 0.03 X10*3/uL (0.00-0.03); Imm Gran Pct Auto 0.4 % (0.0-0.4); Lymphocytes Absolute Auto 1.9 X10*3/uL (1.2-4.9); Lymphocytes Percent Auto 27.2 % (20-40); Mean Corpuscular HGB Conc 31.9 g/dl (31.0-35.0); Mean Corpuscular Hemoglobin 26.1 pg (27.0-33.0); Mean Corpuscular Volume 81.8 fL (80.0-98.0); Mean Platelet Volume 10.3 fL (9.4-12.3); Monocytes Absolute Auto 0.7 X10*3/uL (0.1-1.2); Monocytes Percent Auto 9.3 % (2-11); Neutrophils Absolute Auto 4.3 x10*3/uL (2.0-8.3); Neutrophils Percent Auto 60.6 % (45-73); Platelet Count 275 X10*3/uL (160-400); Red Blood Count 4.18 X10*6/uL (4.20-5.50); Red Cell Distribution Width 16.6 % (11.0-16.0); White Blood Count 7.1 X10*3/uL (4.8-10.8)
[2024-02-23 11:51] LABS: Alanine Aminotransferase 17 U/L (0-31); Albumin Level 3.8 g/dL (3.5-5.0); Alkaline Phosphatase 99 U/L (39-117); Anion Gap 10 (12-20); Aspartate Amino Transferase 16 U/L (5-31); Bilirubin Direct < 0.2 mg/dL (0.0-0.5); Bilirubin Total 0.2 mg/dL (0.0-1.0); Blood Urea Nitrogen 9 mg/dL (9-16); Calcium 9.1 mg/dL (8.4-10.2); Carbon Dioxide 25 mmol/L (22-29); Chloride 108 mmol/L (96-108); Cholesterol 142 mg/dL (<200); Estimated Glomerular Filt Rate > 60; Glucose Random 104 mg/dL (60-115); HDL Cholesterol 36 mg/dL (>40); LDL Cholesterol Calculated 92 mg/dL (<100); Sodium 139 mmol/L (135-145); Triglycerides 74 mg/dL (<150)
[2024-02-23 11:59] LABS: TSH reflex Free T4 1.42 uIU/mL (0.32-4.0)
[2024-02-23 12:06] LABS: Estimated Average Glucose 111 mg/dL; Hemoglobin A1c % 5.5 % (<6.0)
== END 2024-02-23 08:57 | disposition home or self-care (01) ==
LOC: HO.HHCL 08:56
PROVIDERS: Visit Provider Nurse Practitioner Family
DX: Z00.00 Encounter for general adult medical examination without abnormal findings (principal); D64.9 Anemia, unspecified; R53.83 Other fatigue; Z86.19 Personal history of other infectious and parasitic diseases
CPT/HCPCS: 36415; 80053; 80061; 82248; 83036; 84443; 85025

== ENCOUNTER 2024-11-29 15:16 | Outpatient (REF) | payer MEDICAID, SELFPAY ==
--- NOTE | ~2024-11-29 | XR_ITS ---
EXAMINATION: XR CERVICAL SPINE CLINICAL INFORMATION: PAIN COMPARISON: None available. TECHNIQUE: 6 views of the cervical spine, inclusive of flexion and extension views, were obtained. FINDINGS: There is reversal of cervical lordosis. Loss of C5-C6, C6/7 and C7-T1 disc heights with mild ventral spondylosis noted. Oblique views there is mild narrowing of C5-6, C6-C7 neural foramina worse on the left at the C6/7 disc level from uncovertebral hypertrophic spurring. No acute fracture or dislocation seen. No lytic process. The prevertebral soft tissues are normal. XR/XR cervical spine 5V IMPRESSION: Degenerative disc changes C5-6, C6-7 and C7-T1 disc levels. Moderate bilateral narrowing of neural foramina at C5-6 and C6-C7 disc levels worse on the left at C6- C7 disc level. Recommend outpatient MRI correlation. Electronically signed by: Peña Eubanks MD 11/29/2024 04:11 PM EDT
== END 2024-11-29 15:17 | disposition home or self-care (01) ==
LOC: HO.HHCX 15:16
PROVIDERS: Visit Provider Nurse Practitioner Family
DX: M54.2 Cervicalgia (principal)
CPT/HCPCS: 72050

== ENCOUNTER → 2024-11-29 15:21 | Outpatient (BNV) | payer MEDICAID, SELFPAY | PROVIDERS: Visit Provider Radiology Diagnostic Radiology | DX: M50.30 Other cervical disc degeneration, unspecified cervical region (principal) | CPT/HCPCS: 72050 ==

== ENCOUNTER 2024-12-01 13:30 | Emergency (ER) | payer OTHER, SELFPAY ==
--- NOTE | ~2024-12-01 | XR_ITS ---
CLINICAL HISTORY: pain 3 view left shoulder Comparison: None Findings: Bones intact. No dislocations. No significant arthritic change. No erosions. No radiopaque foreign body. IMPRESSION: 1. No acute findings This document has been electronically signed by: Daksha Sargent MD on 12/01/2024 15:27:20
--- NOTE | ~2024-12-01 | XR_ITS ---
CLINICAL HISTORY: CP 2 view chest x-ray Comparison: None Findings: No consolidation or effusion. Normal size heart. No acute fracture. IMPRESSION: 1. No acute findings. This document has been electronically signed by: Daksha Sargent MD on 12/01/2024 15:26:47
--- NOTE | 2024-12-01 13:32 | ED.CHESTPAIN ---
HPI - Chest Pain General Chief Complaint: Extremity Injury, Upper Stated Complaint: pain in shoulder into chest Time Seen by Provider: 12/01/24 14:00 Source: patient, RN notes reviewed and motor vehicle parts interpreter Mode of arrival: ambulatory Limitations: language barrier History of Present Illness ED Provider: Anupama Fry PA-C HPI narrative: This is a 11-qysv-laj-occitan speaking female, with no known medical problems, who presents to the ER with concerns for left shoulder pain for the last 3 weeks. 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 Pt reports that she previously did not do this and was switched to this other job within her work 3 weeks ago. She states that since then, she has had pain in her neck, radiating into her left shoulder down into her left hand. She reports that two days ago she had an episode of chest pain that lasted only several seconds. She reports that her PCP had ordered a c spine xray, which she had performed on 11/29, which she is still waiting for the results. She reports that her symptoms resolve while she is moving, but states that when she returns home from work her symptoms worsen and last through the night into the morning. She denies any fevers, chills, shortness of breath, current chest pain, nausea, vomiting or diarrhea. Denies hx of similar symptoms in the past. No other complaints or concerns at this time. Timing of current episode: episodic Prior episodes: No Risk Factors Coronary artery disease risk factors: none Thoracic aortic dissection risk factors: none Related Data Previous Rx's ?Medication ?Instructions ?Recorded ketorolac 10 mg tablet 10 mg PO TID PRN pain #14 tabs 08/29/23 ondansetron HCl 4 mg tablet 4 mg PO Q6H PRN nausea and 08/29/23 vomiting #14 tabs tamsulosin 0.4 mg capsule 0.4 mg PO DAILY #20 caps 08/29/23 acetaminophen 500 mg tablet 1,000 mg (2 x 500 mg) PO Q8H PRN 12/01/24 (Tylenol Extra Strength) pain #30 tabs cyclobenzaprine 10 mg tablet 10 mg PO TID #14 tabs 12/01/24 lidocaine 5 % topical patch 1 patch topical DAILY #30 ea 12/01/24 prednisone 20 mg tablet 20 mg PO DAILY 5 days #5 tabs 04/20/25 Allergies Allergy/AdvReac Type Severity Reaction Status Date / Time No Known Allergies Allergy Verified 12/01/24 13:39 [No Known Allergies*] Review of Systems Review of Systems: Yes all other systems are reviewed and are negative Constitutional: Constitutional: Reports as per HPI, Denies body ache(s), Denies chills and Denies fever(s) Eyes: Eyes: Reports as per HPI, Denies change in vision and Denies eye discharge ENT: Reports system reviewed and no additional complaints, except as documented, Reports as per HPI, Reports Normal hearing present and Denies facial pain Cardiovascular: Cardiovascular: Reports as per HPI and Denies chest pain Respiratory: Respiratory: Reports as per HPI and Denies cough Gastrointestinal: Gastrointestinal: Reports as per HPI, Reports no additional gastrointestinal complaints, Denies abdominal pain, Denies diarrhea, Denies nausea and Denies vomiting Genitourinary: Genitourinary: Reports no additional female genitourinary complaints and Reports as per HPI Musculoskeletal: Musculoskeletal: Reports no additional musculoskeletal complaints, Reports as per HPI, Reports numbness and Reports tingling Integumentary/Breasts: Skin/Breast: Reports system reviewed and no additional complaints, except as docu, Reports as per HPI, Reports erythema, Denies rash and Denies wounds Neurologic: Reports Normal hearing present, Reports numbness and Reports tingling Psychiatric: Psychiatric: Reports no additional psychiatric complaints and Reports as per HPI Endocrine: Endocrine: Reports no additional endocrine complaints and Reports as per HPI Hematologic/Lymphatic: Hematologic/Lymphatic: Reports no additional hematologic/lymphatic complaints and Reports as per HPI Allergic/Immunologic: Allergic/Immunologic: Reports no additional allergic/immunologic complaints and Reports as per HPI [facility] Social History Social History Alcohol intake: never Smoked in Last 30 Days: No Use of substances other than those prescribed or required for medical reasons: No Advance Directives: No Advance Directives Information Provided: Yes Patient : No Physical Exam Vital Signs: Vital Signs: Last Vital Signs Temp 97.5 F 12/01/24 13:38 Pulse 75 12/01/24 15:25 Resp 18 12/01/24 15:25 BP 126/79 12/01/24 15:25 Pulse Ox 99 12/01/24 15:25 O2 Del Method Room Air 12/01/24 15:25 BMI result Body Mass Index 25.8 Const: General: cooperative, comfortable and no acute distress Orientation/consciousness: patient oriented x3 Limitations: no limitations HEENT: Head: Yes normal to inspection, Yes normocephalic and Yes atraumatic Ears: hearing grossly normal bilaterally General nose exam: Normal external nose present Face and sinus: Yes normal facial exam Mouth: Normal oral and palatal mucosa present, oropharynx normal and moist mucous membranes Throat: Yes posterior oropharynx normal Eyes: General: appearance normal, both eyes and all related structures Eyelids: Yes eyelids normal Conjunctivae: conjunctivae normal Sclerae: sclerae normal Pupils: Equal, round and reactive pupils present EOM: EOMs intact bilaterally Neck: Other: TTP overlying the cervical paraspinous muscles, no midline spine tenderness. No nuchal ridigity. Neck: Yes normal visual inspection, Yes full ROM and Yes no lymphadenopathy Lymphatic: no lymphadenopathy noted Chest: Chest palpation & inspection: normal inspection of the chest Resp: Effort & Inspection: normal respiratory effort and able to speak in complete sentences Auscultation: clear to auscultation bilaterally Cardio: Rate: regular rate Rhythm: regular rhythm Heart sounds: S1 normal heart sound present and S2 normal heart sound present GI: Inspection: Yes normal to inspection Skin: General skin exam: no rashes or lesions noted Trauma: no lacerations or abrasions Wounds: no wounds Neuro: General: patient oriented x3 and moves all extremities Cranial nerves: Yes Equal, round and reactive pupils present and Yes Normal hearing present Extrem: Other: Left shoulder with no obvious bony deformity or swelling. No overlying erythema or wamrth. Pt with ttp throughout the entire shoulder joint without any specific point tenderness. Sensation in tact. She has ttp into the left trapezius muscle with spasm. Full ROM of the left shoulder. Neg lift off test General: Yes normal to inspection Right upper extremity: normal to inspection Left upper extremity: normal to inspection Left lower extremity: normal to inspection Course Course Course Narrative: This is an RME performed by Norberto Saravia CNP: Additional HPI, ROS, PE not included below will be deferred to primary provider. Patient is a 44-year-old female who presents emergency department for evaluation of left upper extremity pain started from the shoulder radiating all the way down the arm, has associated numbness and tingling. Onset was 3 weeks ago progressively worsening. 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 Tried Tylenol twice without improvement no additional medications or conservative treatment. Spoke with your primary care doctor in regards to this, had a cervical spine x-ray outpatient 2 days ago no does not know the results yet of this; impression reveals degenerative disc disease, moderate neuroforaminal narrowing with radiologist recommendation for outpatient MRI. Reevaluation(s) Reevaluation #1: Shoulder x-ray and chest x-ray unremarkable. Awaiting labs. EKG normal sinus rhythm with no ST elevation or depression. Awaiting blood work. Time: 15:33 Reevaluation #2: Blood work returns, no acute findings. Discussed overall workup with patient and motor vehicle parts interpreter at bedside. Symptoms likely attributed to cervical radiculopathy. Advised patient to follow-up with her PCP. D/C with prednisone, flexeril, tylenol. Given return precautions. Pt stable for d/c. Time: 16:27 Medications Administered Discontinued Medications Generic Name Dose Route Start Last Admin Trade Name Freq PRN Reason Stop Dose Admin Acetaminophen 975 mg 12/01/24 14:41 12/01/24 15:22 Acetaminophen 325 Mg Tablet PO 12/01/24 14:42 975 mg ONCE ONE Administration Medical Decision Making Medical Decision Making [facility] Narrative: This is a 44-egmv-xrl-female who presents to the ER with complaints of neck pain and shoulder pain x 3 weeks. On arrival, patient is well appearing, under no acute distress. Vital signs WNL. Pt reports 2 days ago she had an episode of CP, no active CP now. Unlikely ACS in nature, but will obtain labs, ekg, cxr and xr left shoulder. Pt had an outpatient c spine xray which revealed DDD C5-C6, C6-7 and C7-T1 disc levels. Moderate bilateral narrowing of neural foramina at C5-6 and C6-C7 disc levels worse on the left at C6- C7 disc level. This is likely the source of her symptoms. DDX including cervical radiculopathy, ACS, muscle spasm, strain. Differential Diagnosis Differential Diagnoses: The differential diagnosis associated with the presentation includes See above Lab Data [facility] Lab Attestation statement: I reviewed the patient's lab results. No leukocytosis, H&H revealing a normocytic anemia - similar to previous. Chem with no acute electrolyte derangements. 12/01/24 15:14 12/01/24 15:14 Labs: Lab Results 12/01/24 Range/Units 15:14 WBC 7.0 (4.8-10.8) X10*3/uL RBC 4.40 (4.20-5.50) X10*6/uL Hgb 11.9 L (12.0-16.0) g/dl Hct 36.5 L (37.0-47.0) % MCV 83.0 (80.0-98.0) fL MCH 27.0 (27.0-33.0) pg MCHC 32.6 (31.0-35.0) g/dl RDW 16.3 H (11.0-16.0) % Plt Count 274 (160-400) X10*3/uL MPV 10.1 (9.4-12.3) fL Immature Gran % (Auto) 0.3 (0.0-0.4) % Neut % (Auto) 56.1 (45-73) % Lymph % (Auto) 31.2 (20-40) % [place] % (Auto) 8.6 (2-11) % Eos % (Auto) 3.2 (0-4) % Baso % (Auto) 0.6 (0-2) % Lymph # (Auto) 2.2 (1.2-4.9) X10*3/uL [place] # (Auto) 0.6 (0.1-1.2) X10*3/uL Eos # (Auto) 0.2 (0.0-0.4) X10*3/uL Baso # (Auto) 0.0 (0.0-0.2) X10*3/uL Abs Immat Gran (auto) 0.02 (0.00-0.03) X10*3/uL Absolute Neuts (auto) 3.9 (2.0-8.3) x10*3/uL Absolute Nucleated RBC 0.000 (0.0-0.012) X10*3/uL Nucleated RBC % (auto) 0.0 (0.0-0.2) /100WBC Sodium 142 (135-145) mmol/L Potassium 4.5 (3.3-5.1) mmol/L Chloride 106 (96-108) mmol/L Carbon Dioxide 27 (22-29) mmol/L Anion Gap 14 (12-20) BUN 13 (9-16) mg/dL Creatinine 0.79 (0.5-1.4) mg/dL Estim Creat Clear Calc 90.7 Estimated GFR > 60 Random Glucose 89 (60-115) mg/dL Calcium 8.9 (8.4-10.2) mg/dL Magnesium 1.8 (1.6-2.6) mg/dL Total Bilirubin 0.2 (0.0-1.0) mg/dL Direct Bilirubin < 0.2 (0.0-0.5) mg/dL AST 23 (5-31) U/L ALT 20 (0-31) U/L Troponin I High Sens < 2.7 (<3.5-17.0) ng/L Total Protein 7.4 (6.5-8.0) g/dL Albumin 4.0 (3.5-5.0) g/dL Independent Interpretation I performed an independent interpretation of an: EKG Interpretation: EKG normal sinus rhythm at a ventricular rate of 65 beats per minute, no ST elevation or depression. OR interval 134, QT QTC 386/401 Radiology Impression Discussion of test interpretation with radiology: I have reviewed the radiologist's reading. Radiologist Impression: Findings: Bones intact. No dislocations. No significant arthritic change. No erosions. No radiopaque foreign body. IMPRESSION: 1. No acute findings This document has been electronically signed by: Daksha Sargent MD on 12/01/2024 15:27:20 Dictated By: Daksha Sargent MD Comparison: None Findings: No consolidation or effusion. Normal size heart. No acute fracture. IMPRESSION: 1. No acute findings. This document has been electronically signed by: Daksha Sargent MD on 12/01/2024 15:26:47 Dictated By: Daksha Sargent MD Discharge Plan Discharge Clinical Impression: Cervical radiculopathy Patient Disposition: Home, Self-Care Instructions: Cervical Radiculopathy (ED) Additional Instructions: You were seen in the emergency department today. Your symptoms are likely to degenerative changes seen in your neck. This is found on your x-rays that were performed 2 days ago. Your symptoms are attributed to something called cervical radiculopathy which is where nerve in the neck is irritated or compressed leading to pain, numbness into your left arm. Your blood work was reassuring. Your EKG was normal. Your chest x-ray and shoulder x-ray do not show any abnormalities. Please take prescribed prednisone as directed, this will help decrease inflammation. Take Tylenol as needed for pain. Flexeril as a muscle relaxants, please be advised that this can cause drowsiness, do not drink alcohol or drive while taking this medication. Lidoderm patches can also help for your pain. Please call your primary care physician as you likely needing MRI of your neck. If any new or worsening symptoms occur including but not limited to severe chest pain or shortness for breath, please seek emergent care. Prescriptions: New prednisone 20 mg tablet 20 mg PO DAILY 5 Days Qty: 5 0RF cyclobenzaprine 10 mg tablet 10 mg PO TID Qty: 14 0RF lidocaine 5 % adhesive patch,medicated 1 patch topical DAILY Qty: 30 0RF Rx Instructions: leave on most painful area for up to 12 hrs acetaminophen [Tylenol Extra Strength] 500 mg tablet 1,000 mg PO Q8H PRN (Reason: pain) Qty: 30 0RF No Action tamsulosin 0.4 mg capsule 0.4 mg PO DAILY Qty: 20 0RF ketorolac 10 mg tablet 10 mg PO TID PRN (Reason: pain) Qty: 14 0RF ondansetron HCl 4 mg tablet 4 mg PO Q6H PRN (Reason: nausea and vomiting) Qty: 14 0RF Stand Alone Forms: Work/School Release Print Language: Trinidadian
[2024-12-01 13:38] VITALS: BP 144/68; PULSE 90; RESP 18; TEMP 36.4; O2SAT 100; BMI 25.8
--- OUTSIDE RECORDS SUMMARY | 2024-12-01 14:16 | XMS_ITS | Clinical Summary ---
Author Organization [employer] Address [address] [facility] [address] [place] [address] Care Team Providers Care Watch Inspector Name Role Phone Jadyn Davison ROGER Primary Care Provider [phone] Allergies No known active allergies Medications varenicline (Chantix) 0.5 MG tablet Take one tablet once daily for three days, then one tablet twice daily for three days, then continue maintenance dose. 11 tablet 3 Active Additional Information Patient not taking.Reported on 11/19/2024 nicotine (Nicoderm CQ) 14 MG/24HR patch Place 1 patch on the skin 1 (one) time each day at the same time. 42 patch 4 Active nicotine (Nicoderm CQ) 7 MG/24HR patch Place 1 patch on the skin 1 (one) time each day at the same time. 14 patch 4 Active nicotine polacrilex (Commit) 4 MG lozenge Dissolve 1 lozenge (4 mg) in the mouth every 2 (two) hours if needed for smoking cessation. 100 lozenge 4 Active ferrous gluconate (Fergon) 324 (38 Fe) MG tabletIndication s:Anemia, unspecified type Take 1 tablet (324 mg) by mouth with breakfast. 30 tablet 2 4 03/26/20 25 Active Additional Information Patient not taking.Reported on 11/19/2024 Omeprazole 20 MG tablet delayed-releaseI ndications:Gastr oesophageal reflux disease, unspecified whether esophagitis present Take 20 mg by mouth Once per day. 30 tablet 1 4 Active triamcinolone (Kenalog) 0.1 % cream Apply topically if needed in the morning and at bedtime (pain and swelling). 30 g 2 4 Active Additional Information Patient not taking.Reported on 11/19/2024 nicotine polacrilex (Nicorette) 4 MG gumIndications:T obacco use disorder Chew 1 each (4 mg) if needed in the morning, at noon, in the evening, and at bedtime for smoking cessation. 120 each 4 Active ketorolac (Toradol) 10 MG tablet TAKE 1 TABLET ORALLY 3 TIMES A DAY NEEDED FOR PAIN 4 Active ondansetron (Zofran) 4 MG tablet TAKE 1 TABLET ORALLY EVERY 6 HOURS NEEDED FOR NAUSEA AND VOMITING 4 Active tamsulosin (Flomax) 0.4 MG 24 hr capsule Take 0.4 mg by mouth Once per day. 4 Active Active Problems Problem Noted Date Diagnosed Date Complaint of paresthesia 07/07/2024 Chronic pain of left ankle 02/23/2024 Assessment & Plan (03/04/2024 6:21 PM EDT): Nursing into apply brace Otalgia 02/23/2024 Assessment & Plan (03/04/2024 6:22 PM EDT): Associated cellulitis, apply warm compresses, if no improvement, add keflex Cellulitis of antihelix of both ears 02/23/2024 Assessment & Plan (03/04/2024 6:23 PM EDT): See above [place] of foot 02/23/2024 Assessment & Plan (03/04/2024 6:23 PM EDT): Referral to podiatry Gastroesophageal reflux disease 02/19/2024 Assessment & Plan (03/28/2024 5:24 PM EDT): Stable, symptoms are completely controlled with ppi Assessment & Plan (03/04/2024 6:23 PM EDT): Trial protonix, close follow up Left ankle injury, subsequent encounter 02/19/20 24 Foot lesion 02/19/2024 Assessment & Plan (02/24/2024 3:34 PM EDT): [place] vs wart, referral to podiatry Anemia 02/19/2024 Assessment & Plan (03/28/2024 5:25 PM EDT): Likely secondary to menorraghia, pt was offered methods to control menses and oral iron, pt opts for oral iron therapy, repeat cbc ordered - cologuard Assessment & Plan (02/24/2024 3:35 PM EDT): Trend labs Left foot pain 02/19/2024 Atopic dermatitis 02/19/2024 Assessment & Plan (02/24/2024 3:34 PM EDT): No exudate will trial triamcinolone, rtc in 2-4 weeks Other fatigue 02/19/2024 Assessment & Plan (02/24/2024 3:34 PM EDT): Will check cbc and tsh Cervical cancer screening 11/08/2023 Assessment & Plan (11/08/2023 7:48 PM EDT): Pap completed today Vision changes 11/08/2023 Health care maintenance 11/08/2023 Assessment & Plan (11/08/2023 7:50 PM EDT): Moderate cad risk due to smoking, labs as ordered below, Mammogram ordered Pap completed Cologuard ordered Colon cancer screening 10/31/2023 Chronic hepatitis C without hepatic coma 023 Hepatitis C virus infection cured after antiviral drug therapy 11/21/2022 Assessment & Plan (11/08/2023 7:47 PM EDT): Labs ordered, asymptomatic Tobacco dependence 11/21/2022 Assessment & Plan (03/28/2024 5:27 PM EDT): Extensive discussion around nicotine replacement therapy pt opts for gum Assessment & Plan (02/24/2024 3:34 PM EDT): Declines assistance today Assessment & Plan (11/08/2023 7:47 PM EDT): Motivated to quit, has chantix at home, will start Anxiety 07/13/2021 Smoker 07/13/2021 Viral hepatitis C 07/13/2021 Encounters Date Type Department Care Team Description 11/29/2024 Orders Only [facility] [address] [place] [address] Jadyn Davison NP Left arm numbness (Primary Dx); Cervical radiculopathy 11/27/2024 Telephone [facility] [address] [place] [address] Ehsan Vo DDS 11/19/2024 10:00 AM EDT Office Visit [facility] [address] [place] [address] Jw Briana Dental calculus (Primary Dx); Dental plaque; Periodontal disease 11/04/2024 Telephone [facility] [address] [place] [address] Jw Briana change insurance/approval under 10/25/2024 Population Health Risk Score Community [facility] ([facility] Department [address] [place] [address] [phone] Provider, Population Health Generic 10/10/2024 Telephone [facility] [address] [place] [address] Kritsy Pulido MA Chart Prep 09/17/2024 10:00 AM EST Office Visit [facility] [address] [place] [address] Jw, Briana Dental plaque (Primary Dx); Dental calculus 09/10/2024 Telephone [facility] [address] [place] [address] Krsity Pulido MA Chart Prep from Last 3 Months Immunizations Name Administration Dates Next Due Influenza injectable quadrivalent preservative f ree 06/06/2022,07/13/2021 Influenza, Injectable, MDCK, preservative free 0 05/01/2024 Tdap 07/13/2021 Social History Tobacco Use Types Packs/Day Years Used Date Smoking Tobacco: Every Day Cigarettes Tobacco Cessation:Ready to Q uit: Not Asked; Counseling Given: Not Answered Alcohol Use Standard Drinks/Week Comments Never 0 (1 standard drink = 0.6 oz pur e alcohol) Depression Answer Date Recorded Patient Health Questionnaire-9 Score 0 10/31/2023 Patient Health Questionnaire-9 Score 0 10/31/2023 Last PHQ-9: Questionnaire Data Not on file 0 10/31/2023 Housing Stability Answer Date Recorded What is your housing situation today? I have isacc erendira 10/31/[address] you li ve. Do you have problems with any of the following? None of the above 10/31/2023 Food Insecurity Answer Date Recorded Within the past 12 months, y ou worried that your food would run out before you got money to buy more: Never True 10/31/2023 Within the past 12 months,th e food you bought just didn't last and you didn't have enough money to get more: Never True Transportation Answer Date Recorded In the past 12 months, has l ack of transportation kept you from medical appts, meetings, work or from getting things needed for daily living? No 10/31/2023 Utilities Answer Date Recorded In the past 12 months, has t he electric, gas, oil or water company threatened to shut off services in your home? No 10/31/2023 Depression Answer Date Recorded Patient Health Questionnaire-2 Score 0 10/31/2023 Comments Unknown Sex and Gender Information Value Date Recorded Sex Assigned at Female 06/13/2022 10:37 AM EDT Legal Sex Female 10:37 AM EDT Gender Identity Female 06/13/2022 10:37 AM EDT Sexual Orientation Choose not to disclose 2021 10:37 AM EDT Last Filed Vital Signs Vital Sign Reading Time Taken Comments Blood Pressure 134/76 11/19/2024 10:08 AM EDT Pulse 82 03/26/2024 11:38 AM EDT Temperature 36.6 ??C (97.9 ??F) 03/26/2024 11:38 AM E DT Respiratory Rate 25 03/26/2024 11:38 AM EDT Oxygen Saturation 98% 02/23/2024 10:01 AM EDT Inhaled Oxygen Concentration - - Weight 88.1 kg (194 lb 3.2 oz) 03/26/2024 11:38 AM EDT Height 167.6 cm (5' 6 ) 03/26/2024 11:38 AM EDT Body Mass Index 31.34 03/26/2024 11:38 AM EDT Plan of Treatment Upcoming Encounters Date Type Department Care Team (Late st Contact Info) Description 01/03/2025 9:30 AM EDT Office Visit [facility] [address] [place] [address] Ehsan Vo DDS [address] [place] [address] 02/03/2025 9:00 AM EDT Office Visit [facility] [address] [place] [address] Jadyn Davison NP [address] [place] [address] Health Maintenance Due Date Last Done Comments CT Colonography 1978 Colonoscopy 1978 FIT 1978 FOBT 1978 Sigmoidoscopy 1978 Alcohol/Substance Use Screening 1990 Family Planning (PISQ) 1993 Hepatitis A Vaccines (1 of 2 - Risk 2-dose series) 1997 Hepatitis B Vaccines (1 of 3 - 19+ 3-dose series) 1997 Pneumococcal Vaccine: Pediatrics (0 to 5 Years) and At-Risk Patients (6 to 49) Years) (1 of 2 - PCV) 1997 Mammogram 09/30/2023 09/30/2021 COVID-19 Vaccine ( season) 2024 06/06/2022, 09/16/2021, 02/20/2021, Additional history exists Dental Oral Exam 10/04/2024 04/02/2024 Dental Prophylaxis 10/04/2024 04/02/2024 Depression Screening 10/30/2024 10/31/2023, 10/31/19 SDOH Screening 10/30/2024 10/31/2023 Dental X-Ray: Bitewings 09/18/2025 09/17/2024, 04/02 Tobacco Screening 11/19/2025 11/19/2024 Pap Smear 10/30/2026 10/31/2023, 10/31/2023 Colorectal Cancer Screening 12/31/2026 FIT DNA/Cologuard 12/31/2026 01/01/2024 Dental X-Ray: Full Mouth 04/03/2027 04/02/2024, 02/09/2020 Zoster Vaccines (1 of 2) 2028 Cervical Cancer Screening 10/30/2028 HPV/Cotest 10/30/2028 10/31/2023 Lipid Panel 02/22/2029 02/23/2024, 07/27/2021 DTaP/Tdap/Td Vaccines (2 - Td or Tdap) 07/13/2031 07/13/2021 RSV Patients and Patients Aged 60 years or older (1 - 1-dose 75+ series) 2053 HIV Screening Completed 10/31/2023, 07/14, 02/05/2021 Influenza Vaccine Completed 05/01/2024, , 07/13/2021 HIB Vaccines Aged Out No longer eligi ble based on patient's age to complete this topic HPV Vaccines Aged Out No longer eligi ble based on patient's age to complete this topic IPV Vaccines Aged Out No longer eligi ble based on patient's age to complete this topic Meningococcal Vaccine Aged Out No timo jatin eligible based on patient's age to complete this topic RSV under 20 months Aged Out No longe r eligible based on patient's age to complete this topic Rotavirus Vaccines Aged Out No longer eligible based on patient's age to complete this topic Procedures Procedure Name Priority Date/Time Associated Diagnosis Comments XR CERVICAL SPINE 5V Routine 11/29/2024 3:21 PM EDT ORAL HYGIENE INSTRUCTIONS Routine 11/19/2024 10:00 AM EDT Dental calculus Dental plaque Periodontal disease CASE PRESENTATION, DETAILED AND EXTENSIVE TREATMENT PLANNING Routine 11/19/2024 10:00 AM EDT LR PERIODONTAL SCALING AND ROOT PLANING - 1 TO 3 TEETH PER QUADRANT Routine 11/19/2024 10:00 AM EDT Dental calculus Dental plaque Periodontal disease UR PERIODONTAL SCALING AND ROOT PLANING - 1 TO 3 TEETH PER QUADRANT Routine 11/19/2024 10:00 AM EDT Dental calculus Dental plaque Periodontal disease BITEWING - SINGLE RADIOGRAPHIC IMAGE Routine 09/17/2024 10:00 AM EST LL PERIODONTAL SCALING AND ROOT PLANING - 1 TO 3 TEETH PER QUADRANT Routine 09/17/2024 10:00 AM EST Dental plaque Dental calculus CASE PRESENTATION, DETAILED AND EXTENSIVE TREATMENT PLANNING Routine 09/17/2024 10:00 AM EST ORAL HYGIENE INSTRUCTIONS Routine 09/17/2024 10:00 AM EST Dental plaque Dental calculus UL PERIODONTAL SCALING AND ROOT PLANING - 1 TO 3 TEETH PER QUADRANT Routine 09/17/2024 10:00 AM EST Dental plaque Dental calculus PROPHYLAXIS - ADULT Routine 04/02/2024 1 :00 PM EDT Dental calculus Periodontal disease Dental plaque INTRAORAL - COMPLETE SERIES OF RADIOGRAPHIC IMAGES Routine 04/02/2024 1:00 PM EDT PERIODIC ORAL EVALUATION - ESTABLISHED PATIENT Routine 04/02/2024 1:00 PM EDT Dental calculus Periodontal disease Dental plaque Encounter for dental examination Dental caries LIPID PANEL, STANDARD Routine 02/23/2024 8:57 AM EDT Health care maintenance LAB COLOGUARD?? COLON CANCER SCREEN Routine 01/01/2024 9:00 AM EDT Colon cancer screening HPV MRNA E6/E7 REFLEX TO HPV 16, 18/45 Routine 10/31/2023 4:07 PM EDT Cervical cancer screening IMAGE-GUIDED PAP W/AGE BASED SCR,W/CT/NG/TRICH Routine 10/31/2023 4:07 PM EDT Cervical cancer screening HIV 1/2 ANTIGEN/ANTIBODY, FOURTH GENERATION W/RFL Routine 10/31/2023 2:53 PM EDT Health care maintenance MAMMOGRAM GENERIC Routine 09/30/2021 9:2 5 AM EST from Last 3 Months or Most Recently Relevant to Health Maintenance Results * XR CERVICAL SPINE 5V (11/29/2024 3:21 PM EDT) Anatomical Region Laterality Modality Abdomen Radiographic Sun ging 11/29/2024 3:21 PM EDT Narrative 11/29/2024 4:14 PM EDT ?[facility] ?[address] ?[place] [address] ?XRay Report ? Signed ? Patient: Dallin,Jodi ?MR#: [id number] ?? 04 ? : 1980 ?Acct:[id number] ? Age/Sex: 44 / F ?ADM Date: 11/29/24 ? Loc: HO.HHCX ? Attending Dr: Jadyn Davison WINDOW REPAIRER ? Ordering Physician: Jadyn Davison WINDOW REPAIRER ?? Date of Service: 11/29/24 ?? Procedure(s): XR cervical spine 5V ?? Accession Number(s): [id number] ? cc: Jadyn Davison WINDOW REPAIRER ? EXAMINATION: ?? XR CERVICAL SPINE ? CLINICAL INFORMATION: ?? PAIN ? COMPARISON: ?? None available. ? TECHNIQUE: ?? 6 views of the cervical spine, inclusive of flexion and extension ?? views, were obtained. ? FINDINGS: ?? There is reversal of cervical lordosis. Loss of C5-C6, C6/7 and C7-T1 ?? disc heights with mild ventral spondylosis noted. Oblique views there ?? is mild narrowing of C5-6, C6-C7 neural foramina worse on the left at ?? the C6/7 disc level from uncovertebral hypertrophic spurring. No acute ?? fracture or dislocation seen. No lytic process. The prevertebral soft ?? tissues are normal. ? XR/XR cervical spine 5V ?? IMPRESSION: ?? Degenerative disc changes C5-6, C6-7 and C7-T1 disc levels. Moderate ?? bilateral narrowing of neural foramina at C5-6 and C6-C7 disc levels ?? worse on the left at C6- C7 disc level. Recommend outpatient MRI ?? correlation. ? Electronically signed by: ??Peña Cha MD ??11/29/2024 04:11 PM EDT RP ? Dictated By: ?Cha,Peña S MD ? Signed By: ?<Electronically signed by Peña S Cha, MD in OV> ?11/29/24 1611 ? DD/ 1521 ? TD/TT: 11/29/24 1550 ? Shoer: MSM ? Procedure Note Cullen, Image - 11/29/2024 [facility] [address] [place] [address] XRay Report Signed Patient: Tc Zamarripa#: [id number] 04 : 1980Acct:[id number] Age/Sex: 44 / FADM Date: 11/29/24 Loc: HO.HHCX Attending Dr: Jadyn Davison WINDOW REPAIRER Ordering Physician: Jadyn Davison NP Date of Service: 11/29/24 Procedure(s): XR cervical spine 5V Accession Number(s): [id number] cc: Jadyn Davison WINDOW REPAIRER EXAMINATION: XR CERVICAL SPINE CLINICAL INFORMATION: PAIN COMPARISON: None available. TECHNIQUE: 6 views of the cervical spine, inclusive of flexion and extension views, were obtained. FINDINGS: There is reversal of cervical lordosis. Loss of C5-C6, C6/7 and C7-T1 disc heights with mild ventral spondylosis noted. Oblique views there is mild narrowing of C5-6, C6-C7 neural foramina worse on the left at the C6/7 disc level from uncovertebral hypertrophic spurring. No acute fracture or dislocation seen. No lytic process. The prevertebral soft tissues are normal. XR/XR cervical spine 5V IMPRESSION: Degenerative disc changes C5-6, C6-7 and C7-T1 disc levels. Moderate bilateral narrowing of neural foramina at C5-6 and C6-C7 disc levels worse on the left at C6- C7 disc level. Recommend outpatient MRI correlation. Electronically signed by: Peña Eubanks MD 11/29/2024 04:11 PM EDT Dictated By: Peña Eubanks MD Signed By: <Electronically signed by Peña Eubanks MD in OV> 11/29/24 1611 DD/ 1521 TD/TT: 11/29/24 1550 Shoer: MICHAEL Jadyn Davison WINDOW REPAIRER IMG XR PROCEDURES Edited Result - Final * (ABNORMAL) Lipid Panel, Standard (02/23/2024 8:57 AM EDT) Triglycerides 74 <150 mg/dL [facility] Comment:Desirable Triglyceri de: less than 150 mg/dLBorderline High Triglyceride 150-199 mg/dLHigh Triglyceride: 200-499 mg/dLVery High Triglyceride: greater than or equal to 5OO mg/dL Cholesterol 142 <200 mg/dL [facility] Comment:Desirable Cholestero l: less than 200 mg/dLBorderline High Cholesterol: 200-239 mg/dLHigh Cholesterol: greater than 239 mg/dL LDL Cholesterol Calculated 92 <100 mg/dL [facility] Comment:Desirable LDL: less than 100 mg/dLNear Optimal/Above Optimal LDL: 110- 129 mg/dLBorderline High LDL: 130-159 mg/dLHigh LDL: 160-189 mg/dLVery High LDL: greater than or equal to 190 mg/dL HDL Cholesterol 36(L) >40 mg/dL [facility] Comment:Desirable HDL: great er than 40 mg/dL Note: This HDL assay may give artificially low results in patients with liver disease. Blood Venous blood specimen / Unknown 02/23/2024 8:57 AM EDT 02/23/2024 11:06 AM EDT us Jadyn Davison NP LAB BLOOD ORDERABLES Final Resul t [facility] [address] [place] [phone] * Cologuard?? colon cancer screening (01/01/2024 9:00 AM EDT) Cologuard Result Negative Negative 01/18/20 24 11:47 AM EDT [facility] (CLIA #:[id number]) Comment: NEGATIVE TEST RESULT. A negative Cologuard result indicates a low likelihood that a colorectal cancer (CRC) or advanced adenoma (adenomatous polyps with more advanced pre-malignant features) ??is present. The chance that a person with a negative Cologuard test has a colorectal cancer is less than 1 in 1500 (negative predictive value >99.9%) or has an ??advanced adenoma is less than ??5.3% (negative predictive value 94.7%). These data are based on a prospective cross-sectional study of 10,000 individuals at average risk for colorectal cancer who were screened with both Cologuard and colonoscopy. (Rayray Duque. hodan al, N Engl J Med 2014;370(14):1286- 1297) The normal value (reference range) for this assay is negative. COLOGUARD RE-SCREENING RECOMMENDATION: Periodic colorectal cancer screening is an important part of preventive healthcare for asymptomatic individuals at average risk for colorectal cancer. ??Following a negative Cologuard result, the [place] [employer] and U.S. Multi-Society Task Force screening guidelines recommend a Cologuard re-screening interval of 3 years. References: [place] [employer] Guideline for Colorectal Cancer Screening: https://www.cancer.org/cancer/vimoa-idxose-mpnbnj/wvmjvdjmk-okvdkkwfg-uyjiyki/ac s-rec ommendations.html.; Lefty DK, Karyna NAVAS, Montserrat SaldanaK, Colorectal Cancer Screening: Recommendations for Physicians and Patients from the U.S. Multi-Society Task Force on Colorectal Cancer Screening , Am J Gastroenterology 2017; 112:1784-0963. TEST DESCRIPTION: Composite algorithmic analysis of stool DNA-biomarkers with hemoglobin immunoassay. ?? Quantitative values of individual biomarkers are not reportable and are not associated with individual biomarker result reference ranges. Cologuard is intended for colorectal cancer screening of adults of either sex, 45 years or older, who are at average-risk for colorectal cancer (CRC). Cologuard has been approved for use by the U.S. FDA. The performance of Cologuard was established in a cross sectional study of average-risk adults aged 50-84. Cologuard performance in patients ages 45 to 49 years was estimated by sub-group analysis of near-age groups. Colonoscopies performed for a positive result may find as the most clinically significant lesion: colorectal cancer [4.0%], advanced adenoma (including sessile serrated polyps greater than or equal to 1cm diameter) [20%] or non- advanced adenoma [31%]; or no colorectal neoplasia [45%]. These estimates are derived from a prospective cross-sectional screening study of 10,000 individuals at average risk for colorectal cancer who were screened with both Cologuard and colonoscopy. (Rayray Duque. hodan chanel, N Engl J Med 2014;370(14):6617-3526.) Cologuard may produce a false negative or false positive result (no colorectal cancer or precancerous polyp present at colonoscopy follow up). A negative Cologuard test result does not guarantee the absence of CRC or advanced adenoma (pre-cancer). The current Cologuard screening interval is every 3 years. ([place] [employer] and U.S. Multi-Society Task Force). Cologuard performance data in a 10,000 patient pivotal study using colonoscopy as the reference method can be accessed at the following location: www.[employer]/results. Additional description of the Cologuard test process, warnings and precautions can be found at www.cologSevenpoprd.com. Stool specimen (specimen) 01/01/2024 9:00 AM EDT 01/03/2024 12:10 PM EDT us Jadyn Davison WINDOW REPAIRER LAB MOLECULAR DIAGNOSTICS ORDERA BLES Final Result [facility] (CLIA #:[id number]) [place] [address], [place] [phone] * Image-Guided Pap with Age-Based Screening??with CT/NG,??Trichomonas (10/31/2023 4:07 PM EDT) Trichomonas (NAAT) NOT DETECTED NOT DETECTED [facility] Comment:The analytical perfo rmance characteristics of thisassay have been determined by [facility] [place] - 2. Themodifications have not been cleared or approved bythe FDA. This assay has been validated pursuant to theCLIA regulations and is used for clinical purposes.For additional information, please refer tohttp://education.[employer]/faq/Trichomonastma(This link is being provided for information/educational purposes only.)THIS TEST WAS PERFORMED AT:[facility] [place] [phone] BHATT MD CTNG Ref Lab NOT DETECTED NOT DETECTED [facility] NG Ref Lab NOT DETECTED NOT DETECTED [facility] Pap Vial 10/31/2023 4:07 PM EDT 11/06/2023 2:14 PM EDT [facility] - 11/08/2023 1:53 PM EDT Collection Date: [id number] by: BAILEY KNOTT us Jadyn Davison WINDOW REPAIRER LAB CYTOLOGY ORDERABLES Final Re sult [facility] [address] [place] [phone] [phone] * HPV mRNA E6/E7 w/Reflex to HPV Genotypes 16, 18/45 (10/31/2023 4:07 PM EDT) HPV nRNA E6/E7 Not Detected Not Detected [facility] Comment:Methodology: Transcr iption-Mediated AmplificationThis assay detects E6/E7 viral messenger RNA (mRNA) from 14high-risk HPV types (16,18,31,33,35,39,45,51,52,56,58,59,66,68).Cervical sources are required for HPV testing.If a vaginal source from a patient who has had atotal hysterectomy with removal of cervix wassubmitted, please contact the testing laboratoryfor alternative testing options.For additional information, please refer tohttp://education.[employer]/faq/FEV437h5(This link if provided for information/educational purposes only.)THIS TEST WAS PERFORMED AT:[facility] [place] [phone] BHATT MD HPV mRNA E6/E7 [facility] HPV 16 RNA [facility] HPV 18/45 RNA [facility] Vaginal Fluid Cervix uteri structure / Unknown 10/31/2023 4:07 PM EDT 11/06/2023 2:15 PM EDT [facility] - 11/08/2023 8:58 AM EDT Collection Date: [id number] by: BAILEY Richter: Cervix us Jadyn Davison WINDOW REPAIRER LAB CYTOLOGY ORDERABLES Final Re sult Performing Organization Address [facility]/ZIP Co de Phone Number [facility] [address] [place] [address] [phone] * HIV-1/2 Antigen and Antibodies, Fourth Generation, with Reflexes (10/31/2023 2:53 PM EDT) HIV AB/AG Nonreactive Nonreactive [facility] Comment:HIV-1 p24 Ag and/or HIV-1/HIV-2 Ab not detected.A test result that is nonreactive does not exclude thepossibility of exposure to or infection with HIV-1 and/orHIV-2. Nonreactive results in this assay for individualswith prior exposure to HIV-1 and/or HIV-2 may be due toantigen and antibody levels that are below the limit ofdetection of this assay.The [employer] HIV Ag/Ab Combo assay result andsupplemental assay results should be interpreted inconjunction with the patient's clinical presentation,history and other laboratory results. If the results areinconsistent with clinical evidence, additional testing issuggested to confirm the result. Blood Venous blood specimen / Unknown 10/31/2023 2:53 PM EDT 10/31/2023 5:20 PM EDT us Jadyn Davison WINDOW REPAIRER LAB BLOOD ORDERABLES Final Resul t Performing Organization Address [facility]/ZIP Co de Phone Number [facility] [address] [place] [address] [phone] * Mammography Report 1 (09/30/2021 9:25 AM EST) Anatomical Region Laterality Modality Breast Bilateral Mammography 09/30/2021 9:25 AM EST Narrative 09/30/2021 10:33 AM EST Refer to the Notes tab for result details Legacy Procedure: Mammography Report 1 Procedure Note Provider, MD Dahlia - 11/06/2022 Refer to the Notes tab for result details Legacy Procedure: Mammography Report 1 us Milagros Zapata YACHT CAPTAIN IMG BI PROCEDURES Final Result from Last 3 Months or Most Recently Relevant to Health Maintenance Insurance [place] [facility] [facility] - [place] PARTIAL (MEDICAID) Care Teams Watch Inspector Relationship Specialty Start Date End Date Jadyn Davison NP [address] [place] [address] PCP - General Family Medicine 11/24/23
--- OUTSIDE RECORDS SUMMARY | 2024-12-01 14:16 | XMS_ITS | Encounter Summary ---
Author Organization [employer] Address [address] [facility] 7t [place] [address] Care Team Providers Care Mirror Framer Name Role Phone Jadyn Davison ROGER Primary Care Provider [phone] Reason for Visit * Reason Onset Date Comments change insurance/approval under 11/04/2024 Encounter Details Date Type Department Care Team ([facility] Contact Info) Description 11/04/2024 Telephone [facility] ADULT DENTAL [address] [place] [address] Briana Escalera change insurance/approval under Social History Tobacco Use Types Packs/Day Years Used Date Smoking Tobacco: Every Day Cigarettes Alcohol Use Standard Drinks/Week Comments Never 0 (1 standard drink = 0.6 oz pur e alcohol) Depression Answer Date Recorded Patient Health Questionnaire-9 Score 0 10/31/2023 Patient Health Questionnaire-9 Score 0 10/31/2023 Last PHQ-9: Questionnaire Data Not on file 0 10/31/2023 Housing Stability Answer Date Recorded What is your housing situation today? I have isacc krishna 10/31/[address] you li [...] not to disclose 2021 10:37 AM EDT documented as of this encounter Miscellaneous Notes * Telephone Encounter - Alena Landry - 11/04/2024 10:26 AM EDT help desk rep made aware insurance change from to Partial Health safety net for SRP treatment. Approved under . Patient now has Partial Health Safety Net DR documented in this encounter Plan of Treatment Upcoming Encounters Date Type Department Care Team (Late st Contact Info) Description 01/03/2025 9:30 AM EDT Office Visit [facility] ADULT DENTAL [address] [place] [address] Ehsan Vo DDS [address] [place] [address] 02/03/2025 9:00 AM EDT Office Visit [facility] MEDICINE [address] [place] [address] Jadyn Davison NP [address] [place] [address] documented as of this encounter Visit Diagnoses Not on filedocumented in this encounter Additional Health Concerns Assessment Noted Time PHQ-9 Depression Total Score: 0 10/31/19 24 2:29 PM EDT documented as of this encounter Care Teams Mirror Framer Relationship Specialty Start Date End Date Jadyn Davison NP [address] [place] [address] PCP - General Family Medicine 11/24/23 documented as of this encounter
--- OUTSIDE RECORDS SUMMARY | 2024-12-01 14:16 | XMS_ITS | Encounter Summary ---
Author Organization [employer] Address [address] [facility] 7t [place] [address] Care Team Providers Care Financial Services Auditor Name Role Phone Jadyn Davison NP Primary Care Provider [phone] Encounter Details Date Type Department Care Team (Late st Contact Info) Description 11/29/2024 Orders Only [facility] MEDICINE [address] [place], [place] [phone] Jadyn Davison NP [address] [place] [address] Left arm numbness (Primary Dx); Cervical radiculopathy Social History Tobacco Use Types Packs/Day Years [...] AM EDT documented as of this encounter Plan of Treatment Upcoming Encounters Date Type Department Care Team (Late st Contact Info) Description 01/03/2025 9:30 AM EDT Office Visit [facility] ADULT DENTAL [address] [place] [address] Ehsan Vo DDS [address] [place] [address] 02/03/2025 9:00 AM EDT Office Visit [facility] MEDICINE [address] [place] [address] Jadyn Davison, ROGER [address] [place] [address] Scheduled Orders Name Type Priority Associated Diagnoses Orde r Schedule XR Cervical Spine 5 View Imaging Routine Left arm numbness Cervical radiculopathy Expected: 11/29/2024, Expires: 11/29/2025 documented as of this encounter Procedures Procedure Name Priority Date/Time Associated Diagnosis Comments XR CERVICAL SPINE 5V Routine 11/29/2024 3:21 PM EDT documented in this encounter Results * XR CERVICAL SPINE 5V (11/29/2024 3:21 PM EDT) Anatomical Region Laterality Modality Abdomen Radiographic Sun ging 11/29/2024 3:21 PM EDT Narrative 11/29/2024 4:14 PM EDT ?[facility] ?[address] ?[place] [address] ?XRay Report ? Signed ? Patient: Dallin,Jodi ?MR#: [id number] ?? [birth year] ? : 1980 ?Acct:[id number] ? Age/Sex: 44 / F ?ADM Date: 11/29/24 ? Loc: HO.HHCX ? Attending Dr: Jadyn Davison TAILER OFF ? Ordering Physician: Jadyn Davison TAILER OFF ?? Date of Service: 11/29/24 ?? Procedure(s): XR cervical spine 5V ?? Accession Number(s): [id number] ? cc: Jadyn Davison TAILER OFF ? EXAMINATION: ?? XR CERVICAL SPINE ? [...] ?? correlation. ? Electronically signed by: ??Peña Eubanks MD ??11/29/2024 04:11 PM EDT RP ? Dictated By: ?Cha,Peña S MD ? Signed By: ?<Electronically signed by Peña S Cha, MD in OV> ?11/29/24 1611 ? DD/ 1521 ? TD/TT: 11/29/24 1550 ? Glove Sewer: MSM ? Procedure Note Jose Berman - 11/29/2024 [facility] [address] [place] [address] XRay Report Signed Patient: Jodi Zamarripa#: [id number] 04 : 1980Acct:[id number] Age/Sex: 44 / FADM Date: 11/29/24 Loc: HO.HHCX Attending Dr: Jadyn Davison TAILER OFF Ordering Physician: Jadyn Davison NP Date of Service: 11/29/24 Procedure(s): XR cervical spine 5V Accession Number(s): [id number] cc: Jadyn Davison TAILER OFF EXAMINATION: XR CERVICAL SPINE CLINICAL INFORMATION: PAIN [...] 11/29/24 1611 DD/ 1521 TD/TT: 11/29/24 1550 Glove Sewer: MICHAEL Jadyn Davison TAILER OFF IMG XR PROCEDURES Edited Result - Final documented in this encounter Visit Diagnoses Diagnosis Left arm numbness- Primary Disturbance of skin sensation Cervical radiculopathy Brachial neuritis or radiculitis nos documented in this encounter Additional Health Concerns Assessment Noted Time PHQ-9 Depression Total Score: 0 10/31/19 24 2:29 PM EDT documented as of this encounter Care Teams Financial Services Auditor Relationship Specialty Start Date End Date Jadyn Davison NP [address] [place] [address] PCP - General Family Medicine 11/24/23 documented as of this encounter
--- OUTSIDE RECORDS SUMMARY | 2024-12-01 14:16 | XMS_ITS | Encounter Summary ---
Author Organization [employer] Address [address] [facility] 7t [place] [address] Care Team Providers Care Language Translator Name Role Phone Jadyn Davison ROGER Primary Care Provider [phone] Encounter Details Date Type Department Care Team ([facility] st Contact Info) Description 11/27/2024 Telephone [facility] ADULT DENTAL [address] [place], [place] [phone] Ehsan Vo DDS [address] [place], [place] [phone] Social History Tobacco Use Types Packs/Day Years [...] encounter Miscellaneous Notes * Telephone Encounter - Rico Washingtonkumar - 11/27/2024 11:32 AM EDT Patient is all set for 01/03 @ 9:30. I did offer her an opening for tomorrow but patient decline. documented in this encounter Plan of Treatment Upcoming Encounters Date Type Department Care Team (Late st Contact Info) Description 01/03/2025 9:30 AM EDT Office Visit [facility] ADULT DENTAL [address] [place] [address] Ehsan Vo DDS [address] [place] [address] 02/03/2025 9:00 AM EDT Office Visit [facility] MEDICINE [address] [place] [address] Jadyn Davison NP [address] [place] [address] documented as of this encounter Visit Diagnoses Not on filedocumented in this encounter Additional Health Concerns Assessment Noted Time PHQ-9 Depression Total Score: 0 10/31/19 24 2:29 PM EDT documented as of this encounter Care Teams Language Translator Relationship Specialty Start Date End Date Jadyn Davison NP [address] [place] [address] PCP - General Family Medicine 11/24/23 documented as of this encounter
--- NOTE | 2024-12-01 14:41 | ECG_ITS ---
Test Reason : CP Blood Pressure : */* mmHG Vent. Rate : 65 BPM Atrial Rate : 65 BPM P-R Int : 134 ms QRS Dur : 78 ms QT Int : 386 ms P-R-T Axes : 57 33 52 degrees QTcB Int : 401 ms Normal sinus rhythm Normal ECG No previous ECGs available Referred By: Anupama Fry Electronically Signed By: HASEEB MANCUSO
[2024-12-01] MEDS: Acetaminophen 325 MG TABLET 975 MG PO (15:22)
[2024-12-01 15:23] LABS: MANUAL DIFF FLAG NO
[2024-12-01 15:24] LABS: Basophils Percent Auto 0.6 % (0-2); Eosinophils Absolute Auto 0.2 X10*3/uL (0.0-0.4); Eosinophils Percent Auto 3.2 % (0-4); Hematocrit 36.5 % (37.0-47.0); Hemoglobin 11.9 g/dl (12.0-16.0); Imm Gran Abs Auto 0.02 X10*3/uL (0.00-0.03); Imm Gran Pct Auto 0.3 % (0.0-0.4); Lymphocytes Absolute Auto 2.2 X10*3/uL (1.2-4.9); Lymphocytes Percent Auto 31.2 % (20-40); Mean Corpuscular HGB Conc 32.6 g/dl (31.0-35.0); Mean Platelet Volume 10.1 fL (9.4-12.3); Monocytes Absolute Auto 0.6 X10*3/uL (0.1-1.2); Monocytes Percent Auto 8.6 % (2-11); Neutrophils Absolute Auto 3.9 x10*3/uL (2.0-8.3); Neutrophils Percent Auto 56.1 % (45-73); Platelet Count 274 X10*3/uL (160-400); Red Cell Distribution Width 16.3 % (11.0-16.0)
[2024-12-01 15:25] VITALS: BP 126/79; PULSE 75; RESP 18; O2SAT 99
[2024-12-01 15:56] LABS: Alanine Aminotransferase 20 U/L (0-31); Anion Gap 14 (12-20); Aspartate Amino Transferase 23 U/L (5-31); Bilirubin Direct < 0.2 mg/dL (0.0-0.5); Bilirubin Total 0.2 mg/dL (0.0-1.0); Blood Urea Nitrogen 13 mg/dL (9-16); Calcium 8.9 mg/dL (8.4-10.2); Carbon Dioxide 27 mmol/L (22-29); Chloride 106 mmol/L (96-108); Creatinine Clr Calc Pharmacy 90.7; Estimated Glomerular Filt Rate > 60; Glucose Random 89 mg/dL (60-115); Magnesium 1.8 mg/dL (1.6-2.6); Potassium 4.5 mmol/L (3.3-5.1); Sodium 142 mmol/L (135-145); Total Protein 7.4 g/dL (6.5-8.0); Troponin-I High Sensitivity < 2.7 ng/L (<3.5-17.0)
[2024-12-01 16:32] LABS: Alkaline Phosphatase 101 U/L (39-117)
[2024-12-01 16:37] VITALS: BP 135/70; PULSE 78; RESP 18; TEMP 36.6; O2SAT 98
== END 2024-12-01 16:39 | disposition home or self-care (01) ==
PROVIDERS: Physician Assistant Medical; Emergency Provider Emergency Medicine Emergency Medical Services
DX: M54.12 Radiculopathy, cervical region (principal); R07.9 Chest pain, unspecified; M25.512 Pain in left shoulder
CPT/HCPCS: 36415; 71046; 73030; 80048; 80076; 83735; 84484; 85025; 93005; 99283; 99285

== ENCOUNTER → 2024-12-01 14:41 | Outpatient (BNV) | payer OTHER, SELFPAY | PROVIDERS: Emergency Provider Emergency Medicine Emergency Medical Services; Visit Provider Internal Medicine | DX: R07.9 Chest pain, unspecified (principal) | CPT/HCPCS: 93010 ==

== ENCOUNTER → 2024-12-01 14:41 | Outpatient (BNV) | payer OTHER, SELFPAY | PROVIDERS: Emergency Provider Emergency Medicine Emergency Medical Services; Visit Provider Radiology Diagnostic Radiology | DX: R07.9 Chest pain, unspecified (principal); M25.552 Pain in left hip | CPT/HCPCS: 71046; 73030 ==

== ENCOUNTER 2025-02-03 17:36 | Outpatient (REF) | payer OTHER, SELFPAY ==
--- OUTSIDE RECORDS SUMMARY | 2025-02-03 17:52 | XMS_ITS | Encounter Summary ---
Author Organization [employer] Address [address] [facility] 7t [place] [address] Care Team Providers Care Front End Software Engineer Name Role Phone Jadyn Davison FINAL INSPECTOR MOTORCYLES Primary Care Provider Reason for Visit * Reason Onset Date Comments Nurse Triage 04/19/2024 Encounter Details Date Type Department Care Team ([facility] Contact Info) Description 04/19/2024 Telephone [facility] [address] [place] [address] Jadyn Davison, ROGER [address] [place] [address] Nurse Triage Social History Tobacco Use Types Packs/Day Years [...] encounter Miscellaneous Notes * Telephone Encounter - Kelly Alcantar - 04/19/2024 8:59 AM EDT Symptom: Back Pain - Not From Injury Outcome: Talk to a nurse or provider within 15 minutes Reason: Can't walk (unless normally can't walk) The caller accepted this outcome documented in this encounter Plan of Treatment Upcoming Encounters Date Type Department Care Team (Late st Contact Info) Description 04/22/2025 1:00 PM EDT Office Visit [facility] [address] [place] [address] Jadyn Davison NP [address] [place] [address] documented as of this encounter Visit Diagnoses Not on filedocumented in this encounter Additional Health Concerns Assessment Noted Time PHQ-9 Depression Total Score: 0 10/31/19 24 2:29 PM EDT documented as of this encounter Care Teams Front End Software Engineer Relationship Specialty Start Date End Date Jadyn Davison NP [address] [place] [address] PCP - General Family Medicine 11/24/23 documented as of this encounter
[2025-02-04 10:58] LABS: Bacterial Vaginosis PCR POSITIVE (Negative); Candida Group PCR NOT DETECTED (Not Detect); Candida glab krusei PCR NOT DETECTED (Not Detect); Trichomonas vaginalis PCR NOT DETECTED (Not Detect)
== END 2025-02-03 17:37 | disposition home or self-care (01) ==
LOC: HO.LNP 17:36
PROVIDERS: Visit Provider Nurse Practitioner Family
DX: N89.8 Other specified noninflammatory disorders of vagina (principal)
CPT/HCPCS: 81515

== ENCOUNTER 2025-02-11 09:23 | Outpatient (REF) | payer OTHER, SELFPAY ==
--- OUTSIDE RECORDS SUMMARY | 2025-02-11 10:00 | XMS_ITS | Encounter Summary ---
Author Organization [employer] Address [address] [facility] 7t [place] [address] Care Team Providers Care Accounts Receivable Administrator Name Role Phone Jadyn Davison CLOTH BEAMER Primary Care Provider [phone] Reason for Visit * Reason Onset Date Comments Nurse Triage 04/19/2024 Encounter Details Date Type Department Care Team ([facility] Contact Info) Description 04/19/2024 Telephone [facility] MEDICINE [address] [place] [address] Jadyn Davison, ROGER [address] [place] [address] Nurse Triage Social History Tobacco Use Types [...] Care Team (Late st Contact Info) Description 03/13/2025 9:00 AM EDT Office Visit [facility] ADULT DENTAL [address] [place] [address] Ehsan Vo DDS [address] [place] [address] 04/22/2025 1:00 PM EDT Office Visit [facility] MED[facility]INE [address] [place] [address] Jadyn Davison NP [address] [place] [address] documented as of this encounter Visit Diagnoses Not on filedocumented in this encounter Additional Health Concerns Assessment Noted Time PHQ-9 Depression Total Score: 0 10/31/19 24 2:29 PM EDT documented as of this encounter Care Teams Accounts Receivable Administrator Relationship Specialty Start Date End Date Jadyn Davison NP [address] [place] [address] PCP - General Family Medicine 11/24/23 documented as of this encounter
== END 2025-02-11 09:24 | disposition home or self-care (01) ==
LOC: HO.MAMMO 09:23
PROVIDERS: PCP Nurse Practitioner Family; Visit Provider Nurse Practitioner Family
DX: Z12.31 Encounter for screening mammogram for malignant neoplasm of breast (principal)
CPT/HCPCS: 77063; 77067

== ENCOUNTER → 2025-02-11 09:30 | Outpatient (BNV) | payer OTHER, SELFPAY | PROVIDERS: PCP Nurse Practitioner Family; Visit Provider Internal Medicine | DX: Z12.31 Encounter for screening mammogram for malignant neoplasm of breast (principal) | CPT/HCPCS: 77063; 77067 ==

== ENCOUNTER 2025-02-25 10:12 | Outpatient (REF) | payer OTHER, SELFPAY ==
[2025-02-25 11:15] LABS: MANUAL DIFF FLAG NO
--- OUTSIDE RECORDS SUMMARY | 2025-02-25 11:18 | XMS_ITS | Encounter Summary ---
Author Organization [employer] Address [address] [facility] 7t [place] [address] Care Team Providers Care Information Technology Specialist Name Role Phone Jadyn Davison APPLICATION ENGINEER Primary Care Provider [phone] Reason for Visit * Reason Onset Date Comments Nurse Triage 04/19/2024 Encounter Details Date Type Department Care Team ([facility] Contact Info) Description 04/19/2024 Telephone [facility] MEDICINE [address] [place] [address] Jadyn Davison, ROGER [address] [place] [address] Nurse Triage Social History Tobacco Use Types [...] Description 03/13/2025 9:00 AM EDT Office Visit [facility] ADULT DENTAL [address] [place] [address] Ehsan Vo DDS [address] [place] [address] 04/22/2025 1:00 PM EDT Office Visit [facility] MEDICINE [address] [place] [address] Jadyn Davison NP [address] [place] [address] documented as of this encounter Visit Diagnoses Not on filedocumented in this encounter Additional Health Concerns Assessment Noted Time PHQ-9 Depression Total Score: 0 10/31/19 24 2:29 PM EDT documented as of this encounter Care Teams Information Technology Specialist Relationship Specialty Start Date End Date Jadyn Davison NP [address] [place] [address] PCP - General Family Medicine 11/24/23 documented as of this encounter
[2025-02-25 11:25] LABS: Hematocrit 37.0 % (37.0-47.0); Hemoglobin 11.8 g/dl (12.0-16.0); Imm Gran Abs Auto 0.03 X10*3/uL (0.00-0.03); Imm Gran Pct Auto 0.4 % (0.0-0.4); Lymphocytes Absolute Auto 2.2 X10*3/uL (1.2-4.9); Mean Corpuscular HGB Conc 31.9 g/dl (31.0-35.0); Mean Corpuscular Hemoglobin 26.5 pg (27.0-33.0); Mean Corpuscular Volume 83.0 fL (80.0-98.0); NRBC Abs Auto 0.000 X10*3/uL (0.0-0.012); NRBC Pct Auto 0.0 /100WBC (0.0-0.2); Platelet Count 250 X10*3/uL (160-400); Red Blood Count 4.46 X10*6/uL (4.20-5.50); White Blood Count 6.9 X10*3/uL (4.8-10.8)
[2025-02-25 11:34] LABS: Hemoglobin A1C 117.1073 umol/L; Total Hemoglobin (HGBA1C) 3082.7925 umol/L
[2025-02-25 12:05] LABS: Alanine Aminotransferase 21 U/L (0-31); Albumin Level 4.1 g/dL (3.5-5.0); Alkaline Phosphatase 94 U/L (39-117); Anion Gap 12 (12-20); Aspartate Amino Transferase 25 U/L (5-31); Blood Urea Nitrogen 7 mg/dL (9-16); Calcium 8.9 mg/dL (8.4-10.2); Carbon Dioxide 29 mmol/L (22-29); Chloride 104 mmol/L (96-108); Cholesterol 165 mg/dL (<200); Estimated Glomerular Filt Rate > 60; HDL Cholesterol 43 mg/dL (>40); Iron 25 mcg/dL (30-160); Percent Iron Saturation 7 % (15-50); Potassium 4.2 mmol/L (3.3-5.1); Sodium 141 mmol/L (135-145); Total Iron Binding Capacity 368 mcg/dL (228-428); Total Protein 7.1 g/dL (6.5-8.0); Triglycerides 91 mg/dL (<150); Unsaturated Iron Binding 343 ug/dL
== END 2025-02-25 10:13 | disposition home or self-care (01) ==
LOC: HO.HHCL 10:12
PROVIDERS: PCP Family Medicine; Visit Provider Nurse Practitioner Family
DX: Z00.00 Encounter for general adult medical examination without abnormal findings (principal); D64.9 Anemia, unspecified; F17.200 Nicotine dependence, unspecified, uncomplicated
CPT/HCPCS: 36415; 80053; 80061; 83036; 83540; 85025

== ENCOUNTER 2025-06-02 17:17 | Outpatient (REF) | payer OTHER, SELFPAY ==
--- OUTSIDE RECORDS SUMMARY | 2025-06-02 11:15 | XMS_ITS | Encounter Summary ---
Author Organization [employer] Address [address] [facility] [address] [place] [address] Care Team Providers Care Fruit Bar Maker Name Role Phone Jadyn Davison NP Primary Care Provider [phone] Reason for Referral * Imaging (Routine) - Authorized Specialty Diagnoses / Procedures Referred By Contac t Referred To Contact Radiology Diagnoses Pelvic pain in female Procedures US Pelvis Transvaginal Jadyn Davison NP [address] [place] [address] Phone: tel: fax: [address] Phone: tel: fax: Referral ID Status Reason Start Date Expiration Date V isits Requested Visits Authorized [id number] Authorized 06/02/2025 06/02/2026 1 1 * Imaging (Routine) - Authorized Specialty Diagnoses / Procedures Referred By Contac t Referred To Contact Radiology Diagnoses Pelvic pain in female Procedures Us Pelvis complete Jadyn Davison NP [address] [place] [address] Phone: tel: fax: [address] Phone: tel: fax: Referral ID Status Reason Start Date Expiration Date V isits Requested Visits Authorized [id number] Authorized 06/02/2025 06/02/2026 1 1 Encounter Details Date Type Department Care Team (Latest Contact Info) Description 06/02/2025 11:15 AM EDT Office Visit [facility] MED[facility] [address], [place] [phone] Jadyn Davison NP [address] [place], [place] [phone] Vaginal discharge (Primary Dx); Hypertension, unspecified type; Pelvic pain in female; Positive screening for depression on 2-item Patient Health Questionnaire (PHQ-2); Anxiety Social History Tobacco Use Types Packs/Day Years Used Date Smoking Tobacco: Every Day Cigarettes Passive Smoke Exposure: Current Tobacco Cessation:Ready to Q uit: Not Asked; Counseling Given: Not Answered Alcohol Use Standard Drinks/Week Comments Never 0 (1 standard drink = 0.6 oz pur e alcohol) Depression Answer Date Recorded Patient Health Questionnaire-9 Score 16 06/02/2025 Patient Health Questionnaire-9 Score 16 06/02/2025 Last PHQ-9: Questionnaire Data Not on file 1 Housing Stability Answer Date Recorded What is your housing situation today? I have isacc krishna 01/24/[address] you li ve. Do you have problems with any of the following? None of the above 01/24/2025 Food Insecurity Answer Date Recorded Within the past 12 months, y ou worried that your food would run out before you got money to buy more: Never True 01/24/2025 Within the past 12 months,th e food you bought just didn't last and you didn't have enough money to get more: Never True Transportation Answer Date Recorded In the past 12 months, has l ack of transportation kept you from medical appts, meetings, work or from getting things needed for daily living? No 01/24/2025 Utilities Answer Date Recorded In the past 12 months, has t he electric, gas, oil or water company threatened to shut off services in your home? No 01/24/2025 Depression Answer Date Recorded Patient Health Questionnaire-2 Score 3 06/02/2025 Internet Access Answer Date Recorded Internet Access Q1 Yes 01/24/2025 Internet Access Q2 Not on file 01/24/2025 Comments Unknown Sex and Gender Information Value Date Recorded Sex Assigned at Female 06/13/2022 10:37 AM EDT Legal Sex Female 10:37 AM EDT Gender Identity Female 06/13/2022 10:37 AM EDT Sexual Orientation Choose not to disclose 2021 10:37 AM EDT documented as of this encounter Last Filed Vital Signs Vital Sign Reading Time Taken Comments Blood Pressure 142/96 06/02/2025 11:17 AM EDT Pulse 82 06/02/2025 11:17 AM EDT Temperature 36.9 C (98.4 F) 06/02/2025 11:17 AM EDT Respiratory Rate 16 06/02/2025 11:17 AM EDT Oxygen Saturation 97% 06/02/2025 11:17 AM EDT Inhaled Oxygen Concentration - - Weight 86.3 kg (190 lb 4 oz) 06/02/2025 11:17 AM EDT Height 167.6 cm (5' 6 ) 06/02/2025 11:17 AM EDT Body Mass Index 30.71 06/02/2025 11:17 AM EDT documented in this encounter Functional Status * Over the past 2 weeks, how often have you been bothered by any of the following problems? Question Answer Date of Assessment Author Patient Health Questionnaire-2 Score 3 06/02/2025 11:50 AM EDT Lucy Peña MA * Little interest or pleasure in doing things Answer Date of Assessment Author More than half the days 06/02/2025 11:50 AM EDT Lucy Verduzco MA * Feeling down, depressed, or hopeless Answer Date of Assessment Author Several days 06/02/2025 11:50 AM EDT Lucy Vyas Ma, MA * Trouble falling or staying asleep, or sleeping too much Answer Date of Assessment Author Nearly every day 06/02/2025 11:50 AM EDT Lucy York MA * Feeling tired or having little energy Answer Date of Assessment Author Several days 06/02/2025 11:50 AM EDT Lucy Vyas Ma, MA * Poor appetite or overeating Answer Date of Assessment Author Nearly every day 06/02/2025 11:50 AM EDT Lucy York MA * Feeling bad about yourself - or that you are a failure or have let yourself or your family down Answer Date of Assessment Author Not at all 06/02/2025 11:50 AM Lucy Nunez Ma, MA * Trouble concentrating on things, such as reading the newspaper or watching television Answer Date of Assessment Author Nearly every day 06/02/2025 11:50 AM Lucy Batista MA * Moving or speaking so slowly that other people could have noticed? Or the opposite - being so fidgety or restless that you have been moving around a lot more than usual. Answer Date of Assessment Author Nearly every day 06/02/2025 11:50 AM Lucy Batista MA * Thoughts that you would be better off or hurting yourself in some way Answer Date of Assessment Author Not at all 06/02/2025 11:50 AM Lucy Nunez Ma, MA * Patient Health Questionnaire-9 Score Answer Date of Assessment Author 16 06/02/2025 11:50 AM Lucy Nunez Ma, MA * How difficult have these problems made it for you to do your work, take care of things at home, or get along with other people? Answer Date of Assessment Author Not difficult at all 06/02/2025 11:50 AM Lucy Li MA * Over the last 2 weeks, how often have you been bothered by any of the following problems? Question Answer Date of Assessment Author Feeling nervous, anxious, or on edge 1 06/02/2025 11:49 AM ISAACT Lucy Verduzco MA Not being able to stop or control worrying 1 06/02/2025 11:49 AM Lucy Arevalo MA Worrying too much about different things 2 06/02/2025 11:49 AM Lucy Arevalo MA Trouble relaxing 2 06/02/2025 11:49 AM Lucy Arevalo MA Being so restless that it is hard to sit still 2 06/02/2025 11:49 AM EDT Lucy Verduzco MA Becoming easily annoyed or irritable 3 06/02/2025 11:49 AM EDT Lucy Verduzco MA Feeling afraid as if something awful might happen 3 06/02/2025 11:49 AM EDT Lucy York MA LALO-7 Total Score 14 06/02/2025 11:49 AM EDT Lucy Verduzco MA documented as of this encounter Progress Notes * Jadyn Davison, ROGER - 06/02/2025 11:15 AM EDT Jodi Zamarripa is a 45 y.o. female who presents to the office for No chief complaint on file. Problem List[1] Medical History[2] Allergies[3] Jodi Zamarripa, 45-year-old female - In January 2025, had bacterial vaginosis with burning sensation and vaginal discharge, described as white and with a fish or ammonia-like odor - Used a cream for treatment in January 2025, symptoms improved - Last week (May 2025), experienced pelvic pain and headaches; pelvic pain lasted about a week and resolved after menstrual cycle began - Headaches present today, possibly related to not eating breakfast and salty foods; denies burningwith urination - Menstrual cycle occurred last week and expected again at end of May 2025 - Reports positive depression and anxiety screening today, no current mental health support Review of Systems Respiratory: Negative for apnea and chest tightness. Genitourinary: Positive for pelvic pain and vaginal discharge. Negative for dysuria and menstrual problem. BP (!) 142/96 (BP Location: Right arm, Patient Position: Sitting, BP Cuff Size: Adult) Pulse 82 Temp 98.4 ??F (36.9 ??C) (Oral) Resp 16 Ht 5' 6 (1.676 m) Wt 190 lb 4 oz (86.3 kg) LMP 05/25/2025 (Approximate) SpO2 97% BMI 30.71 kg/m?? Physical Exam Constitutional: Appearance: Normal appearance. HENT: Head: Normocephalic. Nose: Nose normal. Eyes: Conjunctiva/sclera: Conjunctivae normal. Cardiovascular: Rate and Rhythm: Regular rhythm. Heart sounds: Normal heart sounds. Pulmonary: Breath sounds: Normal breath sounds. Abdominal: Palpations: Abdomen is soft. Genitourinary: General: Normal vulva. Exam position: Lithotomy position. Pubic Area: No rash. Labia: Right: No rash or lesion. Left: No rash or lesion. Musculoskeletal: Cervical back: Neck supple. - CARDIOVASCULAR: Blood pressure mildly elevated. - GENITOURINARY: External genital examination performed; speculum examination performed for sample collection. Results: No visits with results within 28 Day(s) from this visit. Latest known visit with results is: Office Visit on 02/03/2025 Component Date Value Ref Range Status Sodium 02/25/2025 141 135 - 145 mmol/L Final Potassium 02/25/2025 4.2 3.3 - 5.1 mmol/L Final Chloride 02/25/2025 104 96 - 108 mmol/L Final Carbon Dioxide 02/25/2025 29 22 - 29 mmol/L Final Anion Gap 02/25/2025 12 12 - 20 Final Urea Nitrogen (BUN) 02/25/2025 7 (L) 9 - 16 mg/dL Final Creatinine, Serum 02/25/2025 0.67 0.5 - 1.4 mg/dL Final Estimated Glomerular Filt Rate 02/25/2025 >60 Final Chronic Kidney Disease: Estimated GFR < 60 mL/min/1.81a7Hyxtop Kidney Disease: Estimated GFR < 15 mL/min/1.73m2 Glucose 02/25/2025 101 60 - 115 mg/dL Final Calcium 02/25/2025 8.9 8.4 - 10.2 mg/dL Final Bilirubin, Total 02/25/2025 0.2 0.0 - 1.0 mg/dL Final Aspartate Amino Transferase 02/25/2025 25 5 - 31 U/L Final Alanine Aminotransferase 02/25/2025 21 0 - 31 U/L Final Total Protein 02/25/2025 7.1 6.5 - 8.0 g/dL Final Albumin Level 02/25/2025 4.1 3.5 - 5.0 g/dL Final Alkaline Phosphatase 02/25/2025 94 39 - 117 U/L Final Triglycerides 02/25/2025 91 <150 mg/dL Final Desirable Triglyceride: less than 150 mg/dLBorderline High Triglyceride 150-199 mg/dLHigh Triglyceride: 200-499 mg/dLVery High Triglyceride: greater than or equal to 5OO mg/dL Cholesterol 02/25/2025 165 <200 mg/dL Final Desirable Cholesterol: less than 200 mg/dLBorderline High Cholesterol: 200-239 mg/dLHigh Cholesterol: greater than 239 mg/dL LDL Cholesterol Calculated 02/25/2025 104 (H) <100 mg/dL Final Desirable LDL: less than 100 mg/dLNear Optimal/Above Optimal LDL: 110-129 mg/dLBorderline High LDL:130-159 mg/dLHigh LDL: 160-189 mg/dLVery High LDL: greater than or equal to 190 mg/dL HDL Cholesterol 02/25/2025 43 >40 mg/dL Final Desirable HDL: greater than 40 mg/dL Note: This HDL assay may give artificially low results in patients with liver disease. Iron 02/25/2025 25 (L) 30 - 160 mcg/dL Final Total Iron Binding Capacity 02/25/2025 368 228 - 428 mcg/dL Final Percent Iron Saturation 02/25/2025 7 (L) 15 - 50 % Final Unsaturated Iron Binding 02/25/2025 343 ug/dL Final TRICHOMONAS VAGINALIS DETECTION BY* 02/03/2025 NOT DETECTED Not Detect Final BACTERIAL VAGINOSIS DETECTION BY P* 02/03/2025 POSITIVE (A) Negative Final The BV organism targets of the Xpert Xpress MVP test can becommensal in women; Xpert Xpress MVP positive results forbacterial vaginosis should be considered in conjunction withother clinical and patient information to determine thedisease status. Organisms that are not detected by the XpertXpress MVP test have also been reported to be associatedwith BV and aerobic vaginitis.The Xpert Xpress MVP test performance has not been evaluatedin patients under the age of 14. NEISHA GROUP DETECTION BY PCR 02/03/2025 NOT DETECTED Not Detect Final Neisha glab krusei PCR 02/03/2025 NOT DETECTED Not Detect Final Hemoglobin A1c 02/25/2025 5.6 <6.0 % Final Hemoglobin A1C Reference Range Adults: 4.8 - 6.0 % Non diabetic: < 6.0 % Goal: < 7.0 %Additional Action Suggested: > 8.0 %Note: Hemoglobin A1c results are invalid for patients with abnormalamounts of HbF. Blood transfusions may impact the HbA1c concentration in the patient sample. Estimated Average Glucose 02/25/2025 114 mg/dL Final eAG = Estimated average glucose which is %A1C expressed asaverage glucose, using the formula of the [id number]-[id number] Glucose study (ADAG), Diabetes Care, Vol.31,#8,2007 Assessment & Plan Vaginal discharge Orders: Bacterial Vaginosis Panel Chlamydia/N. Gonorrhoeae, PCR, Urine Hypertension, unspecified type Orders: Blood Pressure kit; 1 kit Once per day. Pelvic pain in female Orders: Us Pelvis complete; Future US Pelvis Transvaginal; Future Positive screening for depression on 2-item Patient Health Questionnaire (PHQ-2) Anxiety Referral to Assessment & Plan Vaginal discharge: - Vaginal discharge possibly due to bacterial vaginosis; not considered a sexually transmitted infection. Differential includes hormonal changes and pH imbalance. - Collected vaginal swab for laboratory analysis. Will treat if results are positive for infection.Patient consented to sample collection. Hypertension, unspecified type: - Elevated blood pressure noted during visit; possible sensitivity to dietary salt discussed as contributing factor. - Recommended increased water intake to help reduce salt levels. Provided home blood pressure monitoring kit and instructed to record measurements morning and evening. Follow-up visit scheduled in 2-3 weeks to reassess blood pressure. If blood pressure remains elevated, will initiate antihypertensive medication trial. Advised to discontinue medication if dizziness or fatigue occurs. Pelvic pain in female: - Pelvic pain may be associated with menstrual cycle or infection; differential includes uterine pathology. - Ordered pelvic ultrasound to further evaluate etiology of pain. Will proceed with imaging unless pain resolves. Positive depression screening: - Positive depression screening noted; further evaluation of mental health status indicated. - Offered referral to mental health counselor; patient agreed to follow-up with counseling services. Appointments - Follow-up appointment in 2 to 3 weeks to reassess blood pressure Current Medications[4] Based on our discussion, I have outlined the following instructions for you: - A sample was taken from your vagina to check for infection. If the test shows an infection, you will get treatment. - Drink more water each day to help lower the amount of salt in your body. - Use the blood pressure monitor at home and write down your blood pressure numbers every morning and every evening. - If you start taking blood pressure medicine and feel dizzy or very tired, stop taking the medicine. - You will have an ultrasound of your pelvis to help find out what is causing your pain. If your pain goes away before the test, the ultrasound may not be needed. - You agreed to talk with a mental health counselor to help with your mood and feelings. Next appointment(s): - Follow-up appointment in 2 to 3 weeks to reassess blood pressure Thank you again for your visit, and we look forward to supporting you in your journey to better health. This note was drafted using Ambient (AI) technology. The patient/patient's guardian has been informed and has consented to the use of this technology: Yes Visit Conducted in: [place] Of [place] Translation by: Provided by [facility] staff member Darin , [1] Patient Active Problem List Diagnosis Chronic hepatitis C without hepatic coma (HCC) Hepatitis C virus infection cured after antiviral drug therapy Tobacco dependence Anxiety Smoker Colon cancer screening Cervical cancer screening Vision changes Health care maintenance Gastroesophageal reflux disease Left ankle injury, subsequent encounter Foot lesion Anemia Left foot pain Atopic dermatitis Other fatigue Chronic pain of left ankle Otalgia Cellulitis of antihelix of both ears Philpot of foot Viral hepatitis C Complaint of paresthesia Acute eruption of skin Allergic reaction Cervical radiculopathy Tobacco use disorder Dietary counseling Exercise counseling Retained dental root Vaginal discharge Cervicalgia Hypertension Pelvic pain in female Positive screening for depression on 2-item Patient Health Questionnaire (PHQ-2) [2] Past Medical History: Diagnosis Date Arthritis Infectious viral hepatitis [3] No Known Allergies [4] Current Outpatient Medications: Blood Pressure kit, 1 kit Once per day., Disp: 1 kit, Rfl: 0 documented in this encounter Miscellaneous Notes * Assessment & Plan Note - Jadyn Davison NP - 06/02/2025 11:15 AM EDTAssociated Problem(s): Vaginal discharge Orders: Bacterial Vaginosis Panel Chlamydia/N. Gonorrhoeae, PCR, Urine * Assessment & Plan Note - Jadyn Davison NP - 06/02/2025 11:15 AM EDTAssociated Problem(s): Anxiety Referral to * Assessment & Plan Note - Jadyn Davison NP - 06/02/2025 11:15 AM EDTAssociated Problem(s): Hypertension Orders: Blood Pressure kit; 1 kit Once per day. * Assessment & Plan Note - Jadyn Davison NP - 06/02/2025 11:15 AM EDTAssociated Problem(s): Pelvic pain in female Orders: Us Pelvis complete; Future US Pelvis Transvaginal; Future * Assessment & Plan Note - Jadyn Davison NP - 06/02/2025 11:15 AM EDTAssociated Problem(s): Positive screening for depression on 2-item Patient Health Questionnaire (PHQ-2) documented in this encounter Plan of Treatment Upcoming Encounters Date Type Department Care Team (Late st Contact Info) Description 08/05/2025 11:30 AM EST Office Visit [facility] MED[facility]INE [address] [place] [address] Jadyn Davison NP [address] [place] [address] Scheduled Orders Name Type Priority Associated Diagnoses Orde r Schedule Bacterial Vaginosis Panel Microbiology Routine Vaginal discharge Ordered: 06/02/2025 Chlamydia/N. Gonorrhoeae, PCR, Urine Lab Routine Vaginal discharge Ordered: 06/02/2025 Pelvis complete Imaging Routine Pelvic pain in female Expected: 06/02/2025, Expires: 06/02/2026 Pelvis Transvaginal Imaging Routine Pelvic pain in female Expected: 06/02/2025, Expires: 06/02/2026 documented as of this encounter Visit Diagnoses Diagnosis Vaginal discharge- Primary Leukorrhea, not specified as infective Hypertension, unspecified type Pelvic pain in female Unspecified symptom associated with female genital organs Positive screening for depression on 2-item Patient Health Questionnaire (PHQ-2) Anxiety Anxiety state, unspecified documented in this encounter Additional Health Concerns Assessment Noted Time PHQ-9 Depression Total Score: 16 025 11:50 AM EDT documented as of this encounter Care Teams Fruit Bar Maker Relationship Specialty Start Date End Date Jadyn Davison NP [address] [place] [id number] PCP - General Family Medicine 11/24/23 documented as of this encounter
--- OUTSIDE RECORDS SUMMARY | 2025-06-02 20:49 | XMS_ITS | Encounter Summary ---
Author Organization [employer] Address [address] [facility] [address] [place] [address] Care Team Providers Care Sanitary Inspector Name Role Phone Jadyn Davison ROGER Primary Care Provider [phone] Reason for Visit * Reason Onset Date Comments I Outreach 06/02/2025 Encounter Details Date Type Department Care Team ([facility] Contact Info) Description 06/02/2025 Telephone [facility] [address] [place] [address] Pierre Manuel [address] [place] [address] [facility] Outreach Social History Tobacco Use Types Packs/Day Years Used Date Smoking Tobacco: Every Day Cigarettes Passive Smoke Exposure: Current Alcohol Use Standard Drinks/Week Comments Never 0 [...] AM EDT documented as of this encounter Functional Status * Over the [...] Author Nearly every day 06/02/2025 11:50 AM ISAACT Lucy York MA * Feeling tired or having little energy Answer Date of Assessment Author Several days 06/02/2025 11:50 AM EDT Lucy Vyas Ma, MA * Poor appetite or overeating Answer Date of Assessment Author Nearly every day 06/02/2025 11:50 AM EDLucy Stephens MA * Feeling bad about yourself - or that you are a failure or have let yourself or your family down Answer Date of Assessment Author Not at all 06/02/2025 11:50 AM Lucy Nunez Ma, MA * Trouble concentrating on things, such as reading the newspaper or watching television Answer Date of Assessment Author Nearly every day 06/02/2025 11:50 AM ISAACT Lucy York MA * Moving or speaking so slowly that other people could have noticed? Or the opposite - being so fidgety or restless that you have been moving around a lot more than usual. Answer Date of Assessment Author Nearly every day 06/02/2025 11:50 AM EDT Lucy York MA * Thoughts that you would be [...] Not difficult at all 06/02/2025 11:50 AM EDLucy Carvajal MA * Over the last 2 weeks, how often have you been bothered by any of the following problems? Question Answer Date of Assessment Author Feeling nervous, anxious, or on edge 1 06/02/2025 11:49 AM Lucy Arevalo MA Not being able to stop or control worrying 1 06/02/2025 11:49 AM Lucy Arevalo MA Worrying too much about different things 2 06/02/2025 11:49 AM Lucy Arevalo MA Trouble relaxing 2 06/02/2025 11:49 AM Lucy Arevalo MA Being so restless that it is hard to sit still 2 06/02/2025 11:49 AM Lucy Arevalo MA Becoming easily annoyed or irritable 3 06/02/2025 11:49 AM Lucy Arevalo MA Feeling afraid as if something awful might happen 3 06/02/2025 11:49 AM EDT Lucy York MA LALO-7 Total Score 14 06/02/2025 11:49 AM EDT Lucy Verduzco MA documented as of this encounter Miscellaneous Notes * Telephone Encounter - Pierre Mar - 06/02/2025 1:04 PM EDT Patient was contacted for appointment as same day. No answer. Left a voicemail with department phone number to reach out. documented in this encounter Plan of Treatment Upcoming Encounters Date Type Department Care Team ([facility] st Contact Info) Description 08/05/2025 11:30 AM EST Office Visit [facility] [address] [place] [address] Jadyn Davison NP [address] [place] [address] documented as of this encounter Visit Diagnoses Not on filedocumented in this encounter Additional Health Concerns Assessment Noted Time PHQ-9 Depression Total Score: 16 025 11:50 AM EDT documented as of this encounter Care Teams Sanitary Inspector Relationship Specialty Start Date End Date Jadyn Davison NP [address] [place] [address] PCP - General Family Medicine 11/24/23 documented as of this encounter
--- OUTSIDE RECORDS SUMMARY | 2025-06-02 20:49 | XMS_ITS | Encounter Summary ---
Author Organization [employer] Address [address] [facility] [address] [place] [address] Care Team Providers Care Supervisor Metal Cans Name Role Phone Jadyn Davison ROGER Primary Care Provider [phone] Reason for Visit * Reason Onset Date Comments appt 01/03/2025 Encounter Details Date Type Department Care Team ([facility] Contact Info) Description 01/03/2025 Telephone [facility] [address] [place], [place] [phone] Ehsan Vo DDS [address] [place], [place] [phone] appt Social History Tobacco Use Types Packs/Day Years [...] * Telephone Encounter - Alena Landry - 01/03/2025 12:44 PM EDT 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 Active requested for extractions [facility] Dr. Vo.Patient was in office today DR documented in this encounter Plan of Treatment Upcoming Encounters Date Type Department Care Team (Late st Contact Info) Description 08/05/2025 11:30 AM EST Office Visit [facility] [address] [place] [address] Jadyn Davison NP [address] [place] [address] documented as of this encounter Visit Diagnoses Not on filedocumented in this encounter Additional Health Concerns Assessment Noted Time PHQ-9 Depression Total Score: 0 10/31/19 24 2:29 PM EDT documented as of this encounter Care Teams Supervisor Metal Cans Relationship Specialty Start Date End Date Jadyn Davison NP [address] [place] [address] PCP - General Family Medicine 11/24/23 documented as of this encounter
--- OUTSIDE RECORDS SUMMARY | 2025-06-02 20:49 | XMS_ITS | Encounter Summary ---
Author Organization [employer] Address [address] [facility] 7[address] [place] [address] Care Team Providers Care Hydroelectric Production Technician Name Role Phone Jadyn Davison ROGER Primary Care Provider Reason for Visit * Reason Onset Date Comments change insurance/approval under 11/04/2024 Encounter Details Date Type Department Care Team ([facility] st Contact Info) Description 11/04/2024 Telephone [facility] ADULT DENTAL [address] [place] [address] Briana Escalera change insurance/approval under Social History [...] Alena Landry - 11/04/2024 10:26 AM EDT service desk specialist made aware insurance change from to Partial Health safety net for SRP treatment. Approved under . Patient now has Partial Health Safety Net DR documented in this encounter Plan of Treatment Upcoming Encounters Date Type Department Care Team (Late st Contact Info) Description 08/05/2025 11:30 AM EST Office Visit [facility] MEDICINE [address] [place] [address] Jadyn Davison NP [address] [place] [address] documented as of this encounter Visit Diagnoses Not on filedocumented in this encounter Additional Health Concerns Assessment Noted Time PHQ-9 Depression Total Score: 0 10/31/19 2:29 PM EDT documented as of this encounter Care Teams Hydroelectric Production Technician Relationship Specialty Start Date End Date Jadyn Davison NP [address] [place] [address] PCP - General Family Medicine 11/24/23 documented as of this encounter
--- OUTSIDE RECORDS SUMMARY | 2025-06-02 20:49 | XMS_ITS | Clinical Summary ---
Author Organization [employer] Address [address] [facility] 7t [place] [address] Care Team Providers Care Digital Forensics Examiner Name Role Phone Jadyn Davison ROGER Primary Care Provider [phone] Allergies No known active allergies Medications * This document contains information received from the source organization and may not represent a complete record from that organization. Blood Pressure kitIndications:Hy pertension, unspecified type 1 kit Once per day. 1 kit 06/02/2025 Active Active Problems Problem Noted Date Diagnosed Date Hypertension 06/02/2025 Assessment & Plan (06/02/2025 4:32 PM EDT): Orders: Blood Pressure kit; 1 kit Once per day. Pelvic pain in female 06/02/2025 Assessment & Plan (06/02/2025 4:32 PM EDT): Orders: Us Pelvis complete; Future US Pelvis Transvaginal; Future Positive screening for depre ssion on 2-item Patient Health Questionnaire (PHQ-2) 06/02/2025 Assessment & Plan (06/02/2025 4:32 PM EDT): Vaginal discharge 02/03/2025 Assessment & Plan (06/02/2025 4:32 PM EDT): Orders: Bacterial Vaginosis Panel Chlamydia/N. Gonorrhoeae, PCR, Urine Assessment & Plan (02/03/2025 9:34 AM EDT): Bv swab ordered, reviewed topical lubricant Return to clinic in 2 months Cervicalgia 02/03/2025 Overview (02/03/2025): Abnormal x-ray, mri ordered, not covered, will revisit once pt changes insurance Retained dental root 01/03/2025 Acute eruption of skin 12/09/2024 Assessment & Plan (12/09/2024 11:02 AM EDT): Secondary to black dye hair chemicals, emollients today, if no improvement topical steroid Allergic reaction 12/09/2024 Cervical radiculopathy 12/09/2024 Assessment & Plan (12/09/2024 11:01 AM EDT): Abnormal cervical x-ray Mri ordered Referral to physiatry Tobacco use disorder 12/09/2024 Assessment & Plan (02/03/2025 9:35 AM EDT): Pt has successfully reduced to 3 cigarettes per day, continue efforts cutting down Assessment & Plan (12/09/2024 11:01 AM EDT): Declines assistance today Dietary counseling 12/09/2024 Assessment & Plan (12/09/2024 11:11 AM EDT): Dietary Recommendations: Fruits, vegetables, whole grains, protein foods, and fat-free or low-fat dairy products are healthy choices. Eat different types of protein foods in your diet. This can include seafood, lean meats, poultry, beans, peas, lentils, nuts, seeds, soy products, and eggs. Limit foods and beverages higher in added sugars, saturated fat, and sodium. Exercise Recommendations: At least 150 minutes of moderate-intensity physical activity per week, or an equivalent combination of moderate- and vigorous-intensity activity Exercise counseling 12/09/2024 Complaint of paresthesia 07/07/2024 Chronic pain of left ankle 02/23/2024 Assessment & Plan (03/04/2024 6:21 PM EDT): Nursing into apply brace Otalgia 02/23/2024 Assessment & Plan (03/04/2024 6:22 PM EDT): Associated cellulitis, apply warm compresses, if no improvement, add keflex Cellulitis of antihelix of both ears 02/23/2024 Assessment & Plan (03/04/2024 6:23 PM EDT): See above [place] of foot 02/23/2024 Assessment & Plan (03/04/2024 6:23 PM EDT): Referral to podiatry Gastroesophageal reflux disease 02/19/2024 Assessment & Plan (03/28/2024 5:24 PM EDT): Stable, symptoms are completely controlled with ppi Assessment & Plan (03/04/2024 6:23 PM EDT): Trial protonix, close follow up Left ankle injury, subsequent encounter 02/19/20 24 Foot lesion 02/19/2024 Assessment & Plan (02/24/2024 3:34 PM EDT): [place] vs wart, referral to podiatry Anemia 02/19/2024 Assessment & Plan (02/03/2025 9:35 AM EDT): Hx of, neg cologuard, d enies menorrhagia, Repeat cbc ordered if anemia present rx iron and pelvic ultrasound Assessment & Plan (03/28/2024 5:25 PM EDT): [...] Vision changes 11/08/2023 Health care maintenance 11/08/2023 Overview (02/03/2025): Last pap 2023 neg hpv Mammogram ordered 12/05- scheduled 02/11/25 Cologuard neg 01/04 Assessment & Plan (11/08/2023 7:50 PM EDT): [...] chantix at home, will start Anxiety 07/13/2021 Assessment & Plan (06/02/2025 4:32 PM EDT): Referral to Smoker 07/13/2021 Viral hepatitis C 07/13/2021 Encounters * This document contains information received from the source organization and may not represent a complete record from that organization. Date Type Department Care Team Description 06/02/2025 11:15 AM EDT Office Visit [address] [address] Jadyn Davison, ROGER Vaginal discharge (Primary Dx); Hypertension, unspecified type; Pelvic pain in female; Positive screening for depression on 2-item Patient Health Questionnaire (PHQ-2); Anxiety 06/02/[address] [phone] Ophelia coppola Pierre Beena Outreach 06/02/2025 Travel 05/30/[address] [address] Jadyn Davison, ROGER chart prep 05/22/[address] [address] Jadyn Davison NP Nurse Triage 04/18/[address] [phone] Jadyn Davison NP Chart Prep from Last 3 Months Immunizations Immunization Administration Dates Next Due Influenza injectable quadrivalent [...] Mass Index 30.71 06/02/2025 11:17 AM EDT Plan of Treatment Upcoming Encounters Date Type Department Care Team (Late st Contact Info) Description 08/05/2025 11:30 AM EST Office Visit [facility] MEDICINE [address] [place] [address] Jadyn Davison NP [address] [place] [address] Health Maintenance Due Date Last Done Comments CT Colonography 1978 Colonoscopy 1978 FIT 1978 Sigmoidoscopy 1978 Family Planning (PISQ) 1993 Hepatitis A Vaccines (1 of 2 - Risk 2-dose series) 1997 Hepatitis B Vaccines (1 of 3 - 19+ 3-dose series) 1997 Pneumococcal Vaccine: Pediatrics (0 to 5 Years) and At-Risk Patients (6 to 49) Years (1 of 2 - PCV) 1997 Dental Oral Exam 10/04/2024 04/02/2024 Dental Prophylaxis 10/04/2024 04/02/2024 FOBT 12/31/2024 01/01/2024 COVID-19 Vaccine (2024- season) 2025 06/06/2022, 09/16/2021, 02/20/2021, Additional history exists Influenza Vaccine (#1) 2025 , 06/06/2022, 07/13/2021 Dental X-Ray: Bitewings 09/18/2025 09/17/2024, 04/02 Depression Monitoring 12/01/2025 06/02/2025, 025 Alcohol/Substance Use Screening 12/09/2025 12/09/2024 SDOH Screening 01/24/2026 01/24/2025 Disability Screening 06/02/2026 06/02/2025 Tobacco Screening 06/02/2026 06/02/2025 Cervical Cancer Screening 10/30/2026 HPV/Cotest 10/30/2026 10/31/2023 Pap Smear 10/30/2026 10/31/2023, 10/31/2023 Colorectal Cancer Screening 12/31/2026 FIT DNA/Cologuard 12/31/2026 01/01/2024 Mammogram 02/11/2027 02/11/2025, 09/30/2021 Dental X-Ray: Full Mouth 04/03/2027 04/02/2024, 02/09/2020 Zoster Vaccines (1 of 2) 2028 Lipid Panel 02/25/2030 02/25/2025, 0709/2023, 07/27/2021 DTaP/Tdap/Td Vaccines (2 - Td or Tdap) 07/13/2031 07/13/2021 RSV Patients and Patients Aged 60 years or older (1 - 1-dose 75+ series) 2053 HIV Screening Completed 10/31/2023, 07/14, 02/05/2021 HIB Vaccines Aged Out No longer eligi ble based on patient's age to complete this topic HPV Vaccines Aged Out No longer eligi ble based on patient's age to complete this topic IPV Vaccines Aged Out No longer eligi ble based on patient's age to complete this topic Meningococcal B Vaccine Aged Out No l onger eligible based on patient's age to complete [...] Procedure Name Priority Date/Time Associated Diagnosis Comments LIPID PANEL, STANDARD Routine 02/25/2025 10:16 AM EDT Health care maintenance Tobacco dependence Tobacco use disorder BI MAMMOGRAM SCREENING TOMOSYNTHESIS BILATERAL Routine 02/11/2025 9:30 AM EDT BITEWING - SINGLE RADIOGRAPHIC IMAGE Routine 09/17/2024 10:00 AM EST PROPHYLAXIS - ADULT Routine 04/02/2024 1 :00 PM EDT Dental calculus Periodontal disease Dental plaque INTRAORAL - COMPLETE SERIES OF RADIOGRAPHIC IMAGES Routine 04/02/2024 1:00 PM EDT PERIODIC ORAL EVALUATION - ESTABLISHED PATIENT Routine 04/02/2024 1:00 PM EDT Dental calculus Periodontal disease Dental plaque Encounter for dental examination Dental caries LAB COLOGUARD COLON CANCER SCREEN Routine 01/01/2024 9:00 AM EDT Colon cancer screening HPV MRNA E6/E7 REFLEX TO HPV 16, 18/45 Routine 10/31/2023 4:07 PM EDT Cervical cancer screening IMAGE-GUIDED PAP W/AGE BASED SCR,W/CT/NG/TRICH Routine 10/31/2023 4:07 PM EDT Cervical cancer screening HIV 1/2 ANTIGEN/ANTIBODY, FOURTH GENERATION W/RFL Routine 10/31/2023 2:53 PM EDT Health care maintenance from Last 3 Months or Most Recently Relevant to Health Maintenance Results * (ABNORMAL) Lipid Panel, Standard (02/25/2025 10:16 AM EDT) Triglycerides 91 <150 mg/dL [facility] Comment:Desirable Triglyceri de: less than 150 mg/dLBorderline High Triglyceride 150-199 mg/dLHigh Triglyceride: 200-499 mg/dLVery High Triglyceride: greater than or equal to 5OO mg/dL Cholesterol 165 <200 mg/dL [facility] Comment:Desirable Cholestero l: less than 200 mg/dLBorderline High Cholesterol: 200-239 mg/dLHigh Cholesterol: greater than 239 mg/dL LDL Cholesterol Calculated 104(H) <100 mg/dL [facility] Comment:Desirable LDL: less than 100 mg/dLNear Optimal/Above Optimal LDL: 110- 129 mg/dLBorderline High LDL: 130-159 mg/dLHigh LDL: 160-189 mg/dLVery High LDL: greater than or equal to 190 mg/dL HDL Cholesterol 43 >40 mg/dL [facility] Comment:Desirable HDL: great er than 40 mg/dL Note: This HDL assay may give artificially low results in patients with liver disease. Blood Venous blood specimen / Unknown 02/25/2025 10:16 AM EDT 02/25/2025 11:06 AM EDT us Jadyn Davison NP LAB BLOOD ORDERABLES Final Resul t [facility] [address] [place] [address] [place] [phone] * BI Mammogram Screening Tomosynthesis Bilateral (02/11/2025 9:30 AM EDT) Anatomical Region Laterality Modality Breast Bilateral Mammography 02/11/2025 9:30 AM EDT Narrative 02/23/2025 8:45 PM EDT [facility] [address] [place] [address] Mammography Report Signed Patient: Jodi Zamarripa MR#: [id number] [birth year] : 1980 Acct:[id number] Age/Sex: 44 / F ADM Date: 02/11/25 Loc: HOViraMAMMO Attending Dr: Jadyn Davison NP Ordering Physician: Jadyn Davison NP Results: 1Negati ve Date of Service: 02/11/25 Follow Up: 1 Year From Orig inal Mammogram Procedure(s): MM tomosynthesis screening BI Accession Number(s): [id number] cc: Jadyn Davison OPERATOR LIGHTS EXAMINATION: MM SCREENING DIGITAL BREAST TOMOSYNTHESIS, BILATERAL CLINICAL INFORMATION: Screening. Asymptomatic. COMPARISON: Mammography: Comparison is made with available priors TECHNIQUE: Digital breast mammography with tomosynthesis is performed in both the craniocaudal and mediolateral oblique views along with computer-aided detection (CAD). FINDINGS: The breasts are heterogeneously dense, which may obscure small masses (ACR BI-RADS breast composition Category c). There are no significant masses, abnormal calcifications, or other abnormalities. MM/MM tomosynthesis screening BI IMPRESSION: No mammographic evidence of malignancy. ASSESSMENT: BI-RADS BI-RADS 1 - Negative RECOMMENDATION: Routine annual mammography screening. 1 year F/U This examination should not preclude the clinical evaluation of a suspicious palpable abnormality. This patient's information was entered into a reminder system with a target due date for their next mammogram. Electronically signed by: Janee Chen DO 02/23/2025 08:42 PM EDT Dictated By: Janee Chen DO Signed By: <Electronically signed by Janee Chen DO in OV> 02/23/252041 DD/ 0930 TD/TT: 02/11/25 0950 Order Entry Clerk: Procedure Note Donotuseinterpreter, Image - 02/23/2025 [facility] [address] [place], [place] [address] Mammography Report Signed Patient: Tc Zamarripa#: [id number] 04 : 1980Acct:[id number] Age/Sex: 44 / FADM Date: 02/11/25 Loc: HO.MAMMO Attending Dr: Jadyn Davison OPERATOR LIGHTS Ordering Physician: Jadyn Davison NPResults: 1Negati ve Date of Service: 02/11/25Follow Up: 1 Year From Orig inal Mammogram Procedure(s): MM tomosynthesis screening BI Accession Number(s): [id number] cc: Jadyn Davison OPERATOR LIGHTS EXAMINATION: MM SCREENING DIGITAL BREAST TOMOSYNTHESIS, BILATERAL CLINICAL INFORMATION: Screening. Asymptomatic. COMPARISON: Mammography: Comparison is made with available priors TECHNIQUE: Digital breast mammography with tomosynthesis is performed in both the craniocaudal and mediolateral oblique views along with computer-aided detection (CAD). FINDINGS: The breasts are heterogeneously dense, which may obscure small masses (ACR BI-RADS breast composition Category c). There are no significant masses, abnormal calcifications, or other abnormalities. MM/MM tomosynthesis screening BI IMPRESSION: No mammographic evidence of malignancy. ASSESSMENT: BI-RADS BI-RADS 1 - Negative RECOMMENDATION: Routine annual mammography screening. 1 year F/U This examination should not preclude the clinical evaluation of a suspicious palpable abnormality. This patient's information was entered into a reminder system with a target due date for their next mammogram. Electronically signed by: Janee Chen DO 02/23/2025 08:42 PM EDT Dictated By: Janee Chen DO Signed By: <Electronically signed by Janee Chen DO in OV> 02/23/252041 DD/ 9 TD/TT: 02/11/25 0950 Order Entry Clerk: Jadyn Davison NP [facility] PROCEDURES Edited Result - Final * Cologuard?? colon cancer screening (01/01/2024 9:00 AM EDT) Cologuard Result Negative Negative 01/18/20 11:47 AM EDT In [facility] (CLIA #:[id number]) Comment: NEGATIVE TEST RESULT. A negative Cologuard result indicates a low likelihood that a colorectal cancer (CRC) or advanced adenoma (adenomatous polyps with more advanced pre-malignant features) is present. The chance that a person with a negative Cologuard test has a colorectal cancer is less than 1 in 1500 (negative predictive value >99.9%) or has an advanced adenoma is less than 5.3% (negative predictive value 94.7%). These data are based on a prospective cross-sectional study of 10,000 individuals at average risk for colorectal cancer who were screened with both Cologuard and colonoscopy. (Rayray Gloria et al, N Engl J Med 2014;370(14):7622-9845) The normal value (reference range) for this assay is negative. COLOGUARD RE-SCREENING RECOMMENDATION: Periodic colorectal cancer screening is an important part of preventive healthcare for asymptomatic individuals at average risk for colorectal cancer. Following a negative Cologuard result, the [place] Cancer Society and U.S. Multi-Society Task Force screening guidelines recommend a Cologuard re-screening interval of 3 years. References: [place] [employer] Society Guideline for Colorectal Cancer Screening: https://www.cancer.org/cancer/ryetp-wwfwjw-mavwrw/fsbusfdyd-rwdkjjhbv-gqxqwuy/ac s-rec ommendations.html.; Lefty DK, Karyna NAVAS, Montserrat SaldanaK, Colorectal Cancer Screening: Recommendations for Physicians and Patients from the U.S. Multi-Society Task Force on Colorectal Cancer Screening , Am J Gastroenterology 2017; 112:0193-3487. TEST DESCRIPTION: Composite algorithmic analysis of stool DNA-biomarkers with hemoglobin immunoassay. Quantitative values of individual biomarkers are not [...] screened with both Cologuard and colonoscopy. (Rayray Gloria et al, N Engl J Med 2014;370(14):1265-0040.) Cologuard may produce a false negative or false positive result (no colorectal cancer or precancerous polyp present at colonoscopy follow up). A negative Cologuard test result does not guarantee the absence of CRC or advanced adenoma (pre-cancer). The current Cologuard screening interval is every 3 years. ([place] Cancer Society and U.S. Multi-Society Task Force). Cologuard performance data in a 10,000 patient pivotal study using colonoscopy as the reference method can be accessed at the following location: www.[employer]/results. Additional description of the Cologuard test process, warnings and precautions can be found at www.HealthcareSourceogGreenIQrd.Kiromic. Stool specimen (specimen) 01/01/2024 9:00 AM EDT 01/03/2024 12:10 PM EDT us Jadyn Davison OPERATOR [facility] LAB MOLECULAR DIAGNOSTICS ORDERA BLES Final Result [facility] (CLIA #:[id number]) [place] [address], * Image-Guided Pap with Age-Based Screening??with CT/NG,??Trichomonas (10/31/2023 4:07 PM EDT) Trichomonas (NAAT) NOT DETECTED NOT DETECTED [facility] Comment:The analytical perfo rmance characteristics of thisassay have been determined by [employer]. Themodifications have not been cleared or approved bythe FDA. This assay has been validated pursuant to theCLIA regulations and is used for clinical purposes.For additional information, please refer tohttp://education.Tantaline.Kiromic/faq/Trichomonastma(This link is being provided for information/educational purposes only.)THIS TEST WAS PERFORMED AT:[facility] [place] [phone] BHATT MD CTNG Ref Lab NOT DETECTED NOT DETECTED [facility] NG Ref Lab NOT DETECTED NOT DETECTED [facility] Pap Vial 10/31/2023 4:07 PM EDT 11/06/2023 2:14 PM EDT Narrative [facility] - 11/08/2023 1:53 PM EDT Collection Date: [id number] by: BAILEY KNOTT us Jadyn Davison OPERATOR L[facility]S LAB CYTOLOGY ORDERABLES Final Re sult [facility] [address] [place] [address] [phone] * HPV mRNA E6/E7 w/Reflex to HPV Genotypes 16, 18/45 (10/31/2023 4:07 PM EDT) HPV nRNA E6/E7 Not Detected Not Detected [facility] Comment:Methodology: Transcr iption-Mediated AmplificationThis assay detects E6/E7 viral messenger RNA (mRNA) from 14high-risk HPV types (16,18,31,33,35,39,45,51,52,56,58,59,66,68).Cervical sources are required for HPV testing.If a vaginal source from a patient who has had atotal hysterectomy with removal of cervix wassubmitted, please contact the testing laboratoryfor alternative testing options.For additional information, please refer tohttp://education.Dynex/faq/KLA350q7(This link if provided for information/educational purposes only.)THIS TEST WAS PERFORMED AT:[facility] [place] [id number] BHATT MD HPV mRNA E6/E7 TNP [facility] HPV 16 RNA TNP [facility] HPV 18/45 RNA [facility] Vaginal Fluid Cervix uteri structure / Unknown 10/31/2023 4:07 PM EDT 11/06/2023 2:15 PM EDT Narrative [facility] - 11/08/2023 8:58 AM EDT Collection Date: [id number] by: BAILEY Richter: Cervix us Jadyn Davison NP LAB CYTOLOGY ORDERABLES Final Re sult Performing Organization Address [facility] Co de Phone Number [facility] [address] [place] [address] [phone] * HIV-1/2 Antigen and Antibodies, Fourth Generation, with Reflexes (10/31/2023 2:53 PM EDT) [facility] HIV AB/AG Nonreactive Nonreactive [facility] Comment:HIV-1 p24 Ag and/or HIV-1/HIV-2 Ab not detected.A test result that is nonreactive does not exclude thepossibility of exposure to or infection with HIV-1 and/orHIV-2. Nonreactive results in this assay for individualswith prior exposure to HIV-1 and/or HIV-2 may be due toantigen and antibody levels that are below the limit ofdetection of this assay.The Reniac HIV Ag/Ab Combo assay result andsupplemental assay results should be interpreted inconjunction with the patient's clinical presentation,history and other laboratory results. If the results areinconsistent with clinical evidence, additional testing issuggested to confirm the result. Blood Venous blood specimen / Unknown 10/31/2023 2:53 PM EDT 10/31/2023 5:20 PM EDT us Jadyn Davison NP LAB BLOOD ORDERABLES Final Resul t Performing Organization Address [facility] Co de Phone Number [facility] [address] [place] [address] [phone] from Last 3 Months or Most Recently Relevant to Health Maintenance Insurance * Guarantor: Jodi Zamarripa Account Type Relation to Patient Date of Phone Billing Address Personal/Family Self 1980 [address] [facility] [address] [place] [address] HSN PARTIAL [facility] 2 DENTAL - HSN PARTIAL (MEDICAID) Care Teams Digital Forensics Examiner Relationship Specialty Start Date End Date Jadyn Davison NP [address] [place] [phone] PCP - General Family Medicine 11/24/23
--- OUTSIDE RECORDS SUMMARY | 2025-06-02 20:49 | XMS_ITS | Encounter Summary ---
Author Organization [employer] Address [address] [facility] 7t [place] [address] Care Team Providers Care Bench Assembler Name Role Phone Jadyn Davison REFRIGERATOR GLAZIER Primary Care Provider [phone] Reason for Visit * Reason Onset Date Comments Nurse Triage 04/19/2024 Encounter Details Date Type Department Care Team ([facility] Contact Info) Description 04/19/2024 Telephone [facility] [address] [place] [address] Jadyn Davison, ROGER [address] [place] [address] Nurse Triage Social History Tobacco Use Types [...] Description 08/05/2025 11:30 AM EST Office Visit [facility] [address] [place] [address] Jadyn Davison NP [address] [place] [address] documented as of this encounter Visit Diagnoses Not on filedocumented in this encounter Additional Health Concerns Assessment Noted Time PHQ-9 Depression Total Score: 0 10/31/19 24 2:29 PM EDT documented as of this encounter Care Teams Bench Assembler Relationship Specialty Start Date End Date Jadyn Davison NP [address] [place] [address] PCP - General Family Medicine 11/24/23 documented as of this encounter
--- OUTSIDE RECORDS SUMMARY | 2025-06-02 20:49 | XMS_ITS | Encounter Summary ---
Author Organization [employer] Address [address] [facility] [address] [place] [address] Care Team Providers Care Roll Reclaimer Name Role Phone Jadyn Davison NP Primary Care Provider [phone] Reason for Visit * Reason Onset Date Comments chart prep 05/30/2025 Encounter Details Date Type Department Care Team ([facility] Contact Info) Description 05/30/2025 Telephone [facility] MEDICINE [address] [place] [address] Jadyn Davison NP [address] [place] [address] chart prep Social History Tobacco Use Types Packs/Day Years [...] Recorded Patient Health Questionnaire-2 Score 0 10/31/2023 Internet Access Answer Date Recorded Internet Access [...] encounter Miscellaneous Notes * Telephone Encounter - Louise Torres MA - 05/30/2025 11:11 AM EDT Chart Prep Labs: done Images: done Referrals: Physiatry - Referral cancelled due to patient having Partial Health Safety Net not even [facility] will see patient. I'm unable to proceed with referral and it's on hold until hotel front desk clerk or patient can change insurance. Message sent to referring provider. Vaccines due: Covid, Flu, PCV20, Hep B, and Hep A Screenings: not applicable Overdue care gaps: PHQ-9, LALO-7, Disability screen, and Tobacco documented in this encounter Plan of Treatment Upcoming Encounters Date Type Department Care Team (Late st Contact Info) Description 08/05/2025 11:30 AM EST Office Visit [facility] MEDICINE [address] [place] [address] Jadyn Davison NP [address] [place] [address] documented as of this encounter Visit Diagnoses Not on filedocumented in this encounter Additional Health Concerns Assessment Noted Time PHQ-9 Depression Total Score: 0 10/31/19 24 2:29 PM EDT documented as of this encounter Care Teams Roll Reclaimer Relationship Specialty Start Date End Date Jadyn Davison NP [address] [place] [phone] PCP - General Family Medicine 11/24/23 documented as of this encounter
--- OUTSIDE RECORDS SUMMARY | 2025-06-02 20:49 | XMS_ITS | Encounter Summary ---
Author Organization [employer] Address [address] [facility] 7[address] [place] [address] Care Team Providers Care Cyber Systems Operations Specialist Name Role Phone Jadyn Davison ROGER Primary Care Provider [phone] Encounter Details Date Type Department Care Team (Latest Contact Info) Description 06/02/2025 Travel Social History Tobacco Use Types Packs/Day Years [...] your housing situation today? I have isacc kirshna 01/24/[address] you li [...] Author Not at all 06/02/2025 11:50 AM EDT Lucy Vyas Ma, [place] * Patient Health Questionnaire-9 Score Answer Date of Assessment Author 16 06/02/2025 11:50 AM EDT Lucy Vyas [place], [place] * How difficult have these problems made it for you to do your work, take care of things at home, or get along with other people? Answer Date of Assessment Author Not difficult at all 06/02/2025 11:50 AM EDT Lucy Dinero [place] * Over the last 2 weeks, how often have you been bothered by any of the following problems? Question Answer Date of Assessment Author Feeling nervous, anxious, or on edge 1 06/02/2025 11:49 AM EDT Lucy Verduzco MA Not being able to stop or control worrying 1 06/02/2025 11:49 AM ISAACT Lucy Verduzco MA Worrying too much about different things 2 06/02/2025 11:49 AM ISAACT Lucy Verduzco MA Trouble relaxing 2 06/02/2025 11:49 AM ISAACT Lucy Verduzco MA Being so restless that it is hard to sit still 2 06/02/2025 11:49 AM ISAACT Lucy Verduzco MA Becoming easily annoyed or irritable 3 06/02/2025 11:49 AM ISAACT Lucy Verduzco MA Feeling afraid as if something awful might happen 3 06/02/2025 11:49 AM ISAACT Lucy York MA LALO-7 Total Score 14 06/02/2025 11:49 AM Lucy Arevalo [place] documented as of this encounter Plan of Treatment Upcoming Encounters Date Type Department Care Team (Late st Contact Info) Description 08/05/2025 11:30 AM EST Office Visit [facility] MEDICINE [address] [place] [address] Jadyn Davison NP [address] [place] [address] documented as of this encounter Visit Diagnoses Not on filedocumented in this encounter Additional Health Concerns Assessment Noted Time PHQ-9 Depression Total Score: 16 025 11:50 AM EDT documented as of this encounter Care Teams Cyber Systems Operations Specialist Relationship Specialty Start Date End Date Jadyn Davison NP [address] [place] [address] PCP - General Family Medicine 11/24/23 documented as of this encounter
--- OUTSIDE RECORDS SUMMARY | 2025-06-02 20:49 | XMS_ITS | Encounter Summary ---
Author Organization [employer] Address [address] [facility] 7[address] [place] [address] Care Team Providers Care Hose Tubing Backer Name Role Phone Jadyn Davison NP Primary Care Provider [phone] Encounter Details Date Type Department Care Team (Late st Contact Info) Description 11/29/2024 Orders Only [facility] MEDICINE [address] [place] [address] Jadyn Davison NP [address] [place] [address] Left arm numbness (Primary Dx); Cervical radiculopathy [...] 11:30 AM EST Office Visit [facility] MEDICINE [address] [place], [place] [phone] Jadyn Davison NP [address] [place], [place] [phone] Scheduled Orders Name Type Priority Associated Diagnoses Orde r Schedule XR Cervical Spine 5 View Imaging Routine Left arm numbness Cervical radiculopathy Expected: 11/29/2024, Expires: 11/29/2025 documented as of this encounter Procedures Procedure Name Priority Date/Time Associated Diagnosis Comments XR SHOULDER 2+ VIEWS LEFT Routine 12/01/2024 3:27 PM EDT XR CHEST 2 VIEWS Routine 12/01/2024 3:26 PM EDT HIGH SENSITIVITY TROPONIN I Routine 12/01/2024 3:14 PM EDT Left arm numbness CBC WITH AUTO DIFFERENTIAL Routine 12/01/2024 3:14 PM EDT Left arm numbness MAGNESIUM Routine 12/01/2024 3:14 PM EDT Left arm numbness HEPATIC FUNCTION PANEL Routine 12/01/2024 3:14 PM EDT Left arm numbness BASIC METABOLIC PANEL Routine 12/01/2024 3:14 PM EDT Left arm numbness XR CERVICAL SPINE 5V Routine 11/29/2024 3:21 PM EDT documented in this encounter Results * XR Shoulder 2+ Views Left (12/01/2024 3:27 PM EDT) Anatomical Region Laterality Modality Upper Extremities, Shoulder Left Radi ographic Imaging 12/01/2024 3:27 PM EDT Narrative 12/01/2024 3:28 PM EDT [address] [address] XRay Report Signed Patient: Jodi Zamarripa MR#: [id number] [birth year] : 1980 Acct:[id number] Age/Sex: 44 / F ADM Date: 12/01/24 Loc: HO.ED Attending Dr: Ordering Physician: Anupama Olivia Date of Service: 12/01/24 Procedure(s): XR shoulder LT min 2V Accession Number(s): [id number] cc: [facility]; Anupama Olivia CLINICAL HISTORY: pain 3 view left shoulder Comparison: None Findings: Bones intact. No dislocations. No significant arthritic change. No erosions. No radiopaque foreign body. IMPRESSION: 1. No acute findings This document has been electronically signed by: Daksha Sargent MD on 12/01/2024 15:27:20 Dictated By: Daksha Sargent MD Signed By: <Electronically signed by Daksha Sargent MD in OV> 12/01/24 1527 DD/ 1527 TD/TT: 12/01/24 1527 Orchid Worker: Procedure Note Donotuseinterpreter, Image - 12/01/[address] [address] XRay Report Signed Patient: Jodi ZamarripaMR#: [id number] 04 : 1980Acct:[id number] Age/Sex: 44 / FADM Date: 12/01/24 Loc: HO.ED Attending Dr: Ordering Physician: Anupama Olivia Date of Service: 12/01/24 Procedure(s): XR shoulder LT min 2V Accession Number(s): [id number] cc: [facility]; Anupama Olivia CLINICAL HISTORY: pain 3 view left shoulder Comparison: None Findings: Bones intact. No dislocations. No significant arthritic change. No erosions. No radiopaque foreign body. IMPRESSION: 1. No acute findings This document has been electronically signed by: Daksha Sargent MD on 12/01/2024 15:27:20 Dictated By: Daksha Sargent MD Signed By: <Electronically signed by Daksha Sargent MD in OV> 12/01/24 1527 DD/ 1527 TD/TT: 12/01/241526 Orchid Worker: [facility] External Provider IMG XR PROCEDURES Final Result * XR Chest 2 Views (12/01/2024 3:26 PM EDT) Anatomical Region Laterality Modality Chest Radiographic Sun ging 12/01/2024 3:26 PM EDT Narrative 12/01/2024 3:28 PM EDT [place] [address] XRay Report Signed Patient: Jodi Zamarripa MR#: [id number] 04 : 1980 Acct:[id number] Age/Sex: 44 / F ADM Date: 12/01/24 Loc: .ED Attending Dr: Ordering Physician: Anupama Olivia Date of Service: 12/01/24 Procedure(s): XR chest 2V Accession Number(s): [id number] cc: [facility]; Anupama Olivia CLINICAL HISTORY: CP 2 view chest x-ray Comparison: None Findings: No consolidation or effusion. Normal size heart. No acute fracture. IMPRESSION: 1. No acute findings. This document has been electronically signed by: Daksha Sargent MD on 12/01/2024 15:26:47 Dictated By: Daksha Sargent MD Signed By: <Electronically signed by Daksha Sargent MD in OV> 12/01/24 1527 DD/ 1526 TD/TT: 04/20/25 1526 Orchid Worker: Procedure Note Donotuseinterpreter, Image - 12/01/[address] [address] XRay Report Signed Patient: Tc Zamarripa#: [id number] 04 : 1980Acct:[id number] Age/Sex: 44 / FADM Date: 12/01/24 Loc: HO.ED Attending Dr: Ordering Physician: Anupama Olivia Date of Service: 12/01/24 Procedure(s): XR chest 2V Accession Number(s): [id number] cc: [facility]; Anupama Olivia CLINICAL HISTORY: CP 2 view chest x-ray Comparison: None Findings: No consolidation or effusion. Normal size heart. No acute fracture. IMPRESSION: 1. No acute findings. This document has been electronically signed by: Daksha Sargent MD on 12/01/2024 15:26:47 Dictated By: Daksha Sargent MD Signed By: <Electronically signed by Daksha Sargent MD in OV> 12/01/24 1527 DD/ 1526 TD/TT: 12/01/24 1526 Orchid Worker: [facility] External Provider IMG XR PROCEDURES Final Result * High Sensitivity Troponin I (12/01/2024 3:14 PM EDT) TROPONIN I HIGH SENSITIVITY <2.7 <3.5 - 17.0 ng/L [facility] Comment:The Weiss high sens itivity Troponin-I results should beused in conjunction with other diagnostic information suchas ECG, clinical observations and information, and patientsymptoms to aid in the diagnosis of [place]. 12/01/2024 3:14 PM EDT 12/01/2024 3:21 PM EDT Generic External Data Provider LAB BLOOD ORDERAB LES Final Result [facility] [address] [place] [phone] * Magnesium (12/01/2024 3:14 PM EDT) Magnesium 1.8 1.6 - 2.6 mg/dL [facility] 12/01/2024 3:14 PM EDT 12/01/2024 3:21 PM EDT us Generic External Data Provider LAB BLOOD ORDERAB LES Final Result [facility] [address] [place] [phone] * Basic Metabolic Panel (12/01/2024 3:14 PM EDT) Sodium 142 135 - 145 mmol/L [facility] Potassium 4.5 3.3 - 5.1 mmol/L [facility] Chloride 106 96 - 108 mmol/L [facility] Carbon Dioxide 27 22 - 29 mmol/L [facility] Anion Gap 14 12 - 20 [facility] Urea Nitrogen (BUN) 13 9 - 16 mg/dL [facility] Creatinine, Serum 0.79 0.5 - 1.4 mg/dL [facility] Creatinine Clr Calc Pharmacy 90.7 [facility] Comment:Provided height and weight: 167.64 cm,72.575 kg.eGFR (calculated from the MDRD study equation) and eCrCl(calculated from the Cockcroft-Gault equation) are based ondifferent parameters and may not yield comparable results.If eCrCl result is absurd, please check patient'sheight/weight. Estimated Glomerular Filt Rate >60 [facility] Comment:Chronic Kidney Disea se: Estimated GFR < 60 mL/min/1.82p8Shpztn Kidney Disease: Estimated GFR < 15 mL/min/1.73m2 Glucose 89 60 - 115 mg/dL [facility] Calcium 8.9 8.4 - 10.2 mg/dL [facility] 12/01/2024 3:14 PM EDT 12/01/2024 3:21 PM EDT us Generic External Data Provider LAB BLOOD ORDERAB LES Final Result Performing Organization Address [facility]/ZIP Co de Phone Number [facility] [address] [place] [phone] * Hepatic Function Panel (12/01/2024 3:14 PM EDT) Bilirubin, Total 0.2 0.0 - 1.0 mg/dL [facility] Bilirubin, Direct <0.2 0.0 - 0.5 mg/dL [facility] Aspartate Amino Transferase 23 5 - 31 U/L [facility] Alanine Aminotransferase 20 0 - 31 U/L [facility] Total Protein 7.4 6.5 - 8.0 g/dL [facility] Albumin Level 4.0 3.5 - 5.0 g/dL [facility] Alkaline Phosphatase 101 39 - 117 U/L [facility] 12/01/2024 3:14 PM EDT 12/01/2024 3:21 PM EDT Generic External Data Provider LAB BLOOD ORDERAB LES Final Result Performing Organization Address [facility] de Phone Number [facility] [address] [place] [phone] * (ABNORMAL) CBC auto differential (12/01/2024 3:14 PM EDT) White Blood Count 7.0 4.8 - 10.8 X10*3/uL [facility] Red Blood Count 4.40 4.20 - 5.50 X10*6/uL [facility] Hemoglobin 11.9(L) 12.0 - 16.0 g/dl [facility] Hematocrit 36.5(L) 37.0 - 47.0 % [facility] Mean Corpuscular Volume 83.0 80.0 - 98.0 fL [facility] Mean Corpuscular Hemoglobin 27.0 27.0 - 33.0 pg [facility] Mean Corpuscular HGB Conc 32.6 31.0 - 35.0 g/dl [facility] Red Cell Distribution Width 16.3(H) 11.0 - 16.0 % [facility] Platelet Count 274 160 - 400 X10*3/uL [facility] Mean Platelet Volume 10.1 9.4 - 12.3 fL [facility] Neutrophils Percent Auto 56.1 45 - 73 % [facility] Imm Gran Pct Auto 0.3 0.0 - 0.4 % [facility] Lymphocytes Percent Auto 31.2 20 - 40 % [facility] Monocytes Percent Auto 8.6 2 - 11 % [facility] Eosinophils Percent Auto 3.2 0 - 4 % [facility] Basophils Percent Auto 0.6 0 - 2 % [facility] NRBC Pct Auto 0.0 0.0 - 0.2 /100WBC [facility] Neutrophils Absolute Auto 3.9 2.0 - 8.3 x10*3/uL [facility] Imm Gran Abs Auto 0.02 0.00 - 0.03 X10*3/uL [facility] Lymphocytes Absolute Auto 2.2 1.2 - 4.9 X10*3/uL [facility] Monocytes Absolute Auto 0.6 0.1 - 1.2 X10*3/uL [facility] Eosinophils Absolute Auto 0.2 0.0 - 0.4 X10*3/uL [facility] Basophils Absolute Auto 0.0 0.0 - 0.2 X10*3/uL [facility] NRBC Abs Auto 0.000 0.0 - 0.012 X10*3/uL [facility] 12/01/2024 3:14 PM EDT 12/01/2024 3:21 PM EDT us Generic External Data Provider LAB BLOOD ORDERAB LES Final Result [facility] [address] [place] [phone] * XR CERVICAL SPINE 5V (11/29/2024 3:21 PM EDT) Anatomical Region Laterality Modality Abdomen Radiographic Sun ging 11/29/2024 3:21 PM EDT Narrative 11/29/2024 4:14 PM EDT [facility] [address] [place] [address] XRay Report Signed Patient: Jodi Zamarripa MR#: [id number] 04 : 1980 Acct:[id number] Age/Sex: 44 / F ADM Date: 11/29/24 Loc: HO.HHCX Attending Dr: Jadyn Davison FLIGHT SURVEYOR Ordering Physician: Jadyn Davison FLIGHT SURVEYOR Date of Service: 11/29/24 Procedure(s): XR cervical spine 5V Accession Number(s): [id number] cc: Jadyn Davison FLIGHT SURVEYOR EXAMINATION: XR CERVICAL SPINE CLINICAL INFORMATION: PAIN [...] 11/29/24 1611 DD/ 1521 TD/TT: 11/29/24 1550 Orchid Worker: [facility] Procedure Note Donotuseinterpreter, Image - 11/29/[address] [address] XRay Report Signed Patient: Jodi ZamarriapMR#: [id number] 04 : 1980Acct:[id number] Age/Sex: 44 / FADM Date: 11/29/24 Loc: HO.HHCX Attending Dr: Jadyn Davison FLIGHT SURVEYOR Ordering Physician: Jadyn Davison NP Date of Service: 11/29/24 Procedure(s): XR cervical spine 5V Accession Number(s): [id number] cc: Jadyn Davison FLIGHT SURVEYOR EXAMINATION: XR CERVICAL SPINE CLINICAL INFORMATION: PAIN [...] 11/29/24 1611 DD/ 1521 TD/TT: 11/29/24 1550 Orchid Worker: MICHAEL Jadyn Davison FLIGHT SURVEYOR IMG XR PROCEDURES Edited Result - Final documented in this encounter Visit Diagnoses Diagnosis Left arm numbness- Primary Disturbance of skin sensation Cervical radiculopathy Brachial neuritis or radiculitis nos documented in this encounter Additional Health Concerns Assessment Noted Time PHQ-9 Depression Total Score: 0 10/31/19 24 2:29 PM EDT documented as of this encounter Care Teams Hose Tubing Backer Relationship Specialty Start Date End Date Jadyn Davison NP [address] [place] [address] PCP - General Family Medicine 11/24/23 documented as of this encounter
[2025-06-03 09:38] LABS: Bacterial Vaginosis PCR NEGATIVE (Negative); Candida Group PCR NOT DETECTED (Not Detect); Candida glab krusei PCR NOT DETECTED (Not Detect); Trichomonas vaginalis PCR NOT DETECTED (Not Detect)
[2025-06-03 10:21] LABS: CT PCR Urine NOT DETECTED (Not Detect.); NG PCR Urine NOT DETECTED (Not Detect.)
== END 2025-06-02 17:18 | disposition home or self-care (01) ==
LOC: HO.LNP 17:17
PROVIDERS: Visit Provider Nurse Practitioner Family
DX: Z20.2 Contact with and (suspected) exposure to infections with a predominantly sexual mode of transmission (principal); N89.8 Other specified noninflammatory disorders of vagina
CPT/HCPCS: 81515; 87491; 87591